=== PATIENT | male | born 1950 | race Caucasian/White ===

== ENCOUNTER 2017-10-08 15:05 | Inpatient (IN) | payer MEDICARE, MEDICAID ==
[~2017-10-08] VITALS: Ht 165.1 cm; Wt 59.9 kg
[~2017-10-08 15:05] MED LIST: /TAMS4CA; CIPRO; FUROSEMIDE 40 MG/4 ML VIAL (J1940) IV SCH; NAPRPOW4; NICO14DI3; VICO5TAB; cipro
[2017-10-08] MEDS ORDERED: BREO1INH INH (15:36)
[2017-10-08] MEDS ORDERED: AMLO5TAB2 PO (15:36)
[2017-10-08 15:38] LABS: BASO # 0.1 10^3/uL (0.0-0.2); BASO % 0.8 % (0.0-1.0); EOS # 0.3 10^3/uL (0.0-0.50); EOS % 1.9 % (0.0-3.0); IMMATURE GRANULOCYTE % 0.5 % (0-0); LYMPH # 2.4 10^3/uL (1.5-4.5); MEAN CORPUSCULAR HGB CONC 29.4 g/dl (32.0-36.5); MONO % 12.3 % (0.0-5.0); NEUTROPHILS # 12.2 10^3/uL (1.8-7.7); NEUTROPHILS % 70.5 % (36.0-66.0); PLATELET COUNT, AUTOMATED 686 10^3/uL (150-450); RED CELL DISTRIBUTION WIDTH 17.2 % (11.5-14.5); WHITE BLOOD COUNT 17.3 10^3/uL (4.0-10.0)
[2017-10-08 15:49] LABS: MONO # 2.1 10^3/uL (0.0-0.8); POSITIVE DIFF POS FLAG
[2017-10-08 16:00] LABS: ANION GAP 7 MEQ/L (8-16); BLOOD UREA NITROGEN 32 MG/DL (7-18); CALCIUM LEVEL 8.9 MG/DL (8.8-10.2); CARBON DIOXIDE LEVEL 31 MEQ/L (21-32); CHLORIDE LEVEL 100 MEQ/L (98-107); CREATININE FOR GFR 1.01 MG/DL (0.70-1.30); GLOMERULAR FILTRATION RATE > 60.0 (>49); GLUCOSE, FASTING 106 MG/DL (80-110); POTASSIUM SERUM 3.8 MEQ/L (3.5-5.1); SODIUM LEVEL 138 MEQ/L (136-145)
[2017-10-08] MEDS ORDERED: METOPROLOL 5 MG/5 ML VIAL IV STA ×2 (16:02→17:04)
[2017-10-08 16:05] LABS: ALBUMIN 2.7 GM/DL (3.2-5.2); ALKALINE PHOSPHATASE 164 U/L (45-117); ALT/SGPT 16 U/L (12-78); AST/SGOT 13 U/L (7-37); BILIRUBIN,DIRECT 0.1 MG/DL (0.0-0.2); BILIRUBIN,TOTAL 0.4 MG/DL (0.2-1.0); THYROXINE (T4) 7.5 UG/DL (4.5-12.0); TOTAL PROTEIN 7.2 GM/DL (6.4-8.2)
--- NOTE | 2017-10-08 16:05 | REP ---
Portable chest x-ray: Two views presented. History: Dyspnea and cough. Comparison chest x-ray: February 23, 2009. Findings: EKG monitoring electrodes overlie the chest. The heart is mildly enlarged. There is chronic tenting of the left hemidiaphragm unchanged from comparison study. Adjacent to this however there are some subtle increased markings suggestive of pneumonia. Remaining lung quiles are clear. Pulmonary vascular markings are slightly increased. No free pleural effusion is observed. Impression: Subtle infiltrate in the left base suggestive of pneumonia. Mildly prominent heart and pulmonary vascular cephalization. Chronic tenting left hemidiaphragm. Signed by Burton Rosas MD 10/08/2017 04:24 P
[2017-10-08 16:07] LABS: ABG BASE EXCESS 4.3 (-2.0-2.0); ABG HCO3 28.7 MEQ/L (22.0-26.0); ABG PARTIAL PRESSURE O2 101.1 mmHg (75.0-100.0); ABG STANDARD HCO3 28.4 MEQ/L (22.0-26.0); ABG pH (ARTERIAL) 7.452 UNITS (7.350-7.450)
[2017-10-08 16:07] LABS: INR 1.01
[2017-10-08] MEDS ORDERED: IPRATROPIUM 0.5MG/ALBUTEROL 2.5MG INH SOL UD 3ML (DUONEB)(J7620) NEB ONE (16:15)
[2017-10-08] MEDS ORDERED: ISOVUE-370 76% 100ML VIAL (Q9967) As Ordered ONE (17:26)
[2017-10-08] MEDS ORDERED: DIGOXIN INJ 0.5 MG/2 ML AMP (J1160) IV STA ×2 (18:49→21:39)
[2017-10-08] MEDS ORDERED: ALBUTEROL SULFATE 2.5 MG/0.5 ML INH NEB SOLN NEB ONE (19:00)
--- NOTE | 2017-10-08 19:22 | REP ---
CT pulmonary angiogram: With IV contrast. History: Shortness of breath. Comparison studies: Comparison is made with today's chest x-ray. There is a comparison chest CT study from [facility] also reviewed dated 01/30/2013. Contrast dose: 75 cc's of Isovue [address] technique: Helical scanning is acquired and overlapping 1.5 mm and contiguous 3 mm axial images are reformatted. In addition, a 3-D work station is deployed to generate thick slab maximum intensity projection images in sagittal and coronal imaging projections. CT pulmonary angiographic findings: There is good opacification of the pulmonary arterial tree. There is no CT evidence of pulmonary embolism. The thoracic aorta enhances homogeneously and is normal in course and caliber. No aneurysm or dissection is seen. There is no evidence of pleural effusion. No hilar or mediastinal mass or adenopathy is seen. There is a small amount of pericardial fluid. There is an abnormal right coronary artery. The right coronary artery is moderately dilated, up to 9 mm in diameter. This dilated right coronary artery is seen descending along the atrioventricular groove of the right heart anteriorly extending in a tortuous fashion at the base of the heart with multiple loops doubling back upon itself. It is difficult to tell where this abnormal right coronary artery drains but the coronary sinus is dilated and partially opacified along the left side of the heart, extending up along the left atrium and I suspect that the lesion is a coronary arteriovenous fistula draining from the right coronary artery into the coronary sinus. Cardiology evaluation possible coronary angiography should be considered. There is no evidence of pleural effusion. There are some chronic pleuroparenchymal fibrosis in the right lung apex unchanged from the 2013 study and emphysematous bullae are seen in the right apex. There are patches of bilateral consolidation in the lung quiles consistent with pneumonia. This most prominently affects the left lower lobe but also the lingula with has patchy areas in the right lower lobe and left upper lobe. No adrenal lesion is seen on either side. The visualized upper abdominal structures are unremarkable except for the presence of a large calculus in the upper pole of the left kidney. This calculus measures 11 mm. Impression: 1. No CT evidence of pulmonary embolism. 2. Patchy infiltrates in the left lower and upper lobe and to a lesser extent right lower lobe consistent with pneumonia. 3. 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 Cardiology evaluation a possible coronary angiography suggested. 4. 11 mm intrarenal calculus upper pole left kidney. Signed by Burton Rosas MD 10/08/2017 07:48 P
[2017-10-08] MEDS ORDERED: CEFTRIAXONE SOD 1 GM in APPROPRIATE DILUENT 1 EA IV ONE (19:30)
[2017-10-08] MEDS ORDERED: AZITHROMYCIN INJ 500 MG, VIAL MATE ADAPTER 1 EACH in D5W 250 ML IV ONE (19:30)
[2017-10-08 19:34] VITALS: O2SAT 94
[2017-10-08] MEDS ORDERED: ALEV220T22 PO (19:55)
[2017-10-08 20:14] LABS: FIBRINOGEN 643 MG/DL (221-452)
[2017-10-08] MEDS ORDERED: ONDANSETRON 4 MG TAB (S0181) PO PRN (21:30)
[2017-10-08] MEDS ORDERED: IPRATROPIUM 0.02% SOLN 0.5MG/2.5 ML NEB INH PRN (21:30)
[2017-10-08] MEDS ORDERED: ALBUTEROL SULFATE 2.5 MG/0.5 ML INH NEB SOLN INH PRN (21:30)
[2017-10-08] MEDS ORDERED: IPRATROPIUM 0.5MG/ALBUTEROL 2.5MG INH SOL UD 3ML (DUONEB)(J7620) NEB PRN (21:30)
[2017-10-08] MEDS ORDERED: BISACODYL 5 MG TAB PO PRN (21:30)
[2017-10-08 21:53] LABS: MAGNESIUM LEVEL 2.2 MG/DL (1.8-2.4)
[2017-10-08 22:28] VITALS: BP 135/66
[2017-10-08 23:00] VITALS: BP 128/74
[2017-10-08 23:25] LABS: FERRITIN 55 NG/ML (26-388); PERCENT SATURATION 3.8 % (19.7-50.0); TOTAL IRON BINDING CAPACITY 312 UG/DL (250-450)
[2017-10-08 23:31] VITALS: BP 120/65
[2017-10-09] VITALS (18 sets, daily range): BP systolic 123–157; BP diastolic 62–86
[2017-10-09 00:36] LABS: MEAN CORPUSCULAR HEMOGLOBIN 19.6 pg (27.0-33.0); MEAN CORPUSCULAR HGB CONC 29.1 g/dl (32.0-36.5); MEAN CORPUSCULAR VOLUME 67.2 fl (80.0-96.0); PLATELET COUNT, AUTOMATED 613 10^3/uL (150-450); RED CELL DISTRIBUTION WIDTH 17.1 % (11.5-14.5); WHITE BLOOD COUNT 15.6 10^3/uL (4.0-10.0)
--- NOTE | 2017-10-09 02:10 | HPEPDOC ---
General Date of Admission 10/08/17 Attending Physician: ZERA GAMBLE MD Chief Complaint 67-year-old male presents to ED for worsening short of breath in past 3 days, and bilateral lower extremity swelling and rash of unknown time. PMH includes only HTN, asthma, and arthritis. Patient states he has been wheezing and has dry cough associated with decreased appetite and nausea. Nasal cannula oxygen in ED improved symptoms, and movement and exertion worsens them. Patient denies similar symptoms in the past, sick contacts, travel history. Denies all other ROS including pain in chest or legs, palpitations, dizziness, lightheadedness, fever, chills. In the ED, patient was noted to be in A. fib with RVR with HR in 140s, systolic blood pressure in 170s, O2 sat~90% which improved with nasal cannula. Patient was noted to have a white count of 17.3, afebrile, BMP in the 5000s, and d- dimer >4000. Chest x-ray revealed left base infiltrate and pulmonary vascular cephalization. CT angiogram was negative for PE and confirmed pneumonia and an incidentally found AV fistula. Patient was administered Lopressor x2 and Iopamidol which normalized blood pressure, and digoxin and diltiazem x2, which converted him to NSR upon transfer to ICU. Cardiology was also called, whose recommendations were followed as seen in A/P of note. CODE STATUS: Pending per patient's request to discuss with clau Byrne who will arrive tomorrow 10/09. Unclear who is healthcare proxy. On initial discussion with patient, he made it clear he does not want to be intubated, but is unsure about CPR, and requesting more time to consider. 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 cholecystectomy Social History CODE STATUS: Pending per patient's request to discuss with clau Caty who will arrive tomorrow 10/09 afternoon heavy smoker; cigarettes 1ppd for 50+ years alcohol: denies illicit drug use: denies Review of Symptoms Constitutional: Denies: Chills, Fever, Night Sweats, Weakness, Weight Loss Eyes: Denies: Pain, Vision change ENT: Denies: Head Aches, Ear Pain, Dysphagia, Epistaxis Pulmonary: Reports: Dyspnea, Cough (dry), Denies: Pleuritic Chest Pain Cardiovascular: Denies: Chest Pain, Edema, Lt Headedness Gastrointestinal: Reports: Nausea, Denies: Vomiting, Abdominal Pain, Diarrhea, Constipation, Melena, Hematochezia Genitourinary: Denies: Hematuria Musculoskeletal: Denies: Joint Pain, Muscle Pain Neurological: Denies: Weakness, Numbness Physical Examination General Exam: Positive: Alert, Cooperative, Mild Distress Eye Exam: Positive: EOMI, Negative: Ptosis ENT Exam: Positive: Atraumatic, Nares Patent, Other ENT (hard of hearing), Negative: Mucous membr. moist/pink (dry) Neck Exam: Positive: Supple Chest Exam: Positive: Rales, Wheezing, Negative: Clear to auscultation Heart Exam: Positive: Tachycardic, Irregular Rhythm, Normal S1, Normal S2, Negative: Rate Normal Telemetry: Positive: Tachycardia Abdomen Exam: Positive: Normal bowel sounds, Soft, Negative: Tenderness Extremity Exam: Negative: Cyanosis, Edema, Tenderness Skin Exam: Positive: Rash (b/l LE, maculopapular, pink, patchy, diffuse from knees below) Neuro Exam: Positive: Normal Tone, Sensation Intact, Negative: Strength at 5/5 X4 ext (5/5 UE b/l, 2/5 LE b/l) Psych Exam: Positive: Mental status NL Vital Signs Vital Signs Date Time Temp Pulse Resp B/P (MAP) Pulse Ox O2 Delivery O2 Flow Rate FiO2 10/08/17 19:40 133 10/08/17 19:34 94 Nasal Cannula 2.0 10/08/17 19:27 113/55 10/08/17 19:03 24 10/08/17 16:33 98.6 Laboratory Data Labs 24H Laboratory Tests 2 10/08/17 15:21: Anion Gap 7L, Glomerular Filtration Rate > 60.0, Lactic Acid Level 2.0, Blood Urea Nitrogen 32H, Creatinine 1.01, Sodium Level 138, Potassium Level 3.8, Chloride Level 100, Carbon Dioxide Level 31, Calcium Level 8.9, Aspartate Amino Transf (AST/SGOT) 13, Alanine Aminotransferase (ALT/SGPT) 16, Alkaline Phosphatase 164H, Total Bilirubin 0.4, Direct Bilirubin 0.1, Total Creatine Kinase 45, Creatine Kinase MB 1.5, Creatine Kinase MB Relative Index 3.33, Troponin I < 0.02, MN-Ypf-G-Type Natriuretic Peptide 5723H, Total Protein 7.2, Albumin 2.7L, Albumin/Globulin Ratio 0.60L, Thyroid Stimulating Hormone (TSH) 1.830, Thyroxine (T4) 7.5 10/08/17 15:27: Immature Granulocyte % (Auto) 0.5H, White Blood Count 17.3H, Red Blood Count 4.31, Hemoglobin 8.6L, Hematocrit 29.3L, Mean Corpuscular Volume 68.0L, Mean Corpuscular Hemoglobin 20.0L, Mean Corpuscular Hemoglobin Concent 29.4L, Red Cell Distribution Width 17.2H, Platelet Count 686H, Neutrophils (%) (Auto) 70.5H , Lymphocytes (%) (Auto) 14.0L, Monocytes (%) (Auto) 12.3H, Eosinophils (%) ( Auto) 1.9, Basophils (%) (Auto) 0.8, Neutrophils # (Auto) 12.2H, Lymphocytes # ( Auto) 2.4, Monocytes # (Auto) 2.1H, Eosinophils # (Auto) 0.3, Basophils # (Auto ) 0.1, Immature Granulocyte # (Auto) 0.1H, Nucleated Red Blood Cells % (auto) 0.0, Prothrombin Time 13.4, Prothromb Time International Ratio 1.01, D-Dimer, Quantitative > 4000.0H 10/08/17 15:55: Blood Gas Bicarbonate Standard 28.4H, Arterial Blood pH 7.452H, Arterial Blood Partial Pressure CO2 42.0, Arterial Blood Partial Pressure O2 101.1H, Arterial Blood Total CO2 30.0, Arterial Blood HCO3 28.7H, Arterial Blood Base Excess 4.3H , Arterial Blood Oxygen Saturation 98.2 CBC/BMP Laboratory Tests 10/08/17 15:21 Calcium Level 8.9 10/08/17 15:27 Red Blood Count 4.31, Mean Corpuscular Volume 68.0 L, Mean Corpuscular Hemoglobin 20.0 L, Mean Corpuscular Hemoglobin Concent 29.4 L, Red Cell Distribution Width 17.2 H, Neutrophils (%) (Auto) 70.5 H, Lymphocytes (%) (Auto ) 14.0 L, Monocytes (%) (Auto) 12.3 H, Eosinophils (%) (Auto) 1.9, Basophils (% ) (Auto) 0.8, Neutrophils # (Auto) 12.2 H, Lymphocytes # (Auto) 2.4, Monocytes # (Auto) 2.1 H, Eosinophils # (Auto) 0.3, Basophils # (Auto) 0.1 Microbiology Microbiology 10/08/17 Blood Culture, Received Pending 10/08/17 Blood Culture, Received Pending Assessment/Plan New onset A. fib with RVR Presented to ED for increased shortness of breath for past 3 days, worse with movement and exertion, improved on oxygen. Found to be in A. fib with heart rate 141 in ED. Converted to NSR with digoxin and diltiazem x2, but continues to waver on tachycardia in low 100s HR. Cardiac markers negative, electrolytes normal. Elevated alkaline phosphatase, BNP, d-dimer, fibrinogen. Discussed case with cardiology: standing dose of digoxin 0.25mg to start in a.m , along with diltiazem 60mg po q6h with holding parameters, and HOLD anticoagulation as patient is anemic Possible CHF No previous history of CHF BNP on admission is 5723 along with elevated fibrinogen and d-dimer >4000. Chest x-ray revealed pulmonary vascular cephalization, CT angiogram negative for PE. No pitting edema or JVD on physical exam. Discussed with production packager, and suggested to hold diuretics for now, as LV function will likely improve with heart rate control; give Lasix in between blood transfusions to avoid volume overload. CXR also revealed an AV fistula leading to dilated coronary sinus. Discussed with cardiology: likely congenital, patient has been asymptomatic for decades. No intervention needed at this time. Iron deficient anemia, 2/2 acute blood loss H&H on admission are 8.6/29.3 respectively. Likely acute blood loss due to patient stating he has had intermittent black tarry stools recently, and supported by anemia workup. GI bleed is very likely, but per ED reports, Hemoccult in ED was negative. Pt denies having ever been transfused. Transfusion consent obtained and in chart. H&H dropped to 8.0/27.5 by the time patient transferred to ICU. Vitals remained stable, but likely to be actively bleeding since patient was not on fluids. 2 units PRBCs transfused stat, with Lasix 40mg given after 1st unit. Per production packager, goal is hemoglobin>10 to prevent cardiac ischemia. Trend H&H more transfusions may be needed. On Protonix po Community-acquired pneumonia WBC 17.3 on admission and elevated Alk phos. Patient afebrile. CXR revealed pneumonia, and patient has symptoms dry cough and wheezing. CT angiogram negative for PE. Start Ceftaroline and azithromycin Continue oxygen support and nebulizers Cellulitis of bilateral lower extremity Nonpainful swelling of bilateral lower extremity from knees downward and nonblanching diffuse maculopapular rash bilaterally in same area. Likely contributing to leukocytosis. Ceftaroline and azithromycin started Blood cultures pending Hypertension BP on admission was 171/77 with patient asymptomatic. Normalized in ED with Lopressor x2, Iopamidol. 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 Tylenol prn Asthma nebulizers prn DVT prophylaxis SCD/TEDs. Hold anticoagulation since patient is anemic DISPOSITION: Will admit to ICU and transition to Dr. Gamble's service in the morning. Poor prognosis. Plan / VTE VTE Prophylaxis Ordered?: Yes (SCD/EDDIE) GME ATTESTATION ATTENDING NOTE I have seen and examined the patient with the resident I have reviewed the and discussed the plan with her I concur with her findings on Hx and PE and agree with her A&P with the following additions/exceptions: Patient with Anemia and CAP requiring IV ABx so A 2 MN stay is expected. WILLIAM LYNCH DO Oct 08, 2017 20:27 JENNIFER NORMAN MD Oct 11, 2017 06:14
[2017-10-09 07:38] LABS: MEAN CORPUSCULAR HEMOGLOBIN 21.7 pg (27.0-33.0); MEAN CORPUSCULAR HGB CONC 30.5 g/dl (32.0-36.5); MEAN CORPUSCULAR VOLUME 71.3 fl (80.0-96.0); PLATELET COUNT, AUTOMATED 650 10^3/uL (150-450); RED CELL DISTRIBUTION WIDTH 20.4 % (11.5-14.5)
[2017-10-09 08:03] LABS: ANION GAP 6 MEQ/L (8-16); BLOOD UREA NITROGEN 25 MG/DL (7-18); CALCIUM LEVEL 8.6 MG/DL (8.8-10.2); CARBON DIOXIDE LEVEL 33 MEQ/L (21-32); CHLORIDE LEVEL 99 MEQ/L (98-107); CREATININE FOR GFR 1.08 MG/DL (0.70-1.30); GLOMERULAR FILTRATION RATE > 60.0 (>49); GLUCOSE, FASTING 103 MG/DL (80-110); POTASSIUM SERUM 4.2 MEQ/L (3.5-5.1); SODIUM LEVEL 138 MEQ/L (136-145)
--- NOTE | 2017-10-09 09:27 | ECGEPIP ---
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
[2017-10-09] MEDS: PANTOPRAZOLE 40MG TAB (PROTONIX) PO SCH (09:30)
[2017-10-09] MEDS: DIGOXIN 0.25 MG TAB PO SCH (09:31)
[2017-10-09] MEDS: amLODIPine 5 MG TAB PO SCH (09:33)
[2017-10-09] MEDS: CEFTAROLINE FOSAMIL 600 MG in APPROPRIATE DILUENT 1 EA IV SCH ×2 (10:04→22:52)
--- NOTE | 2017-10-09 16:53 | IPNPDOC ---
Text Note Date of Service The patient was seen on 10/09/17. NOTE Subjective: Patient is a 67 year old male with a PMHx of HTN, Asthma and Arthritis who presented to the ER with complaints of SOB and productive cough. He was found to be in A. fib with RVR. Labs revealed he was profoundly anemic requiring transfusions and also had a left sided pneumonia. Case was discussed with cardiology and rate / rhythm control medications were recommended. Patient received Digoxin IV in the ER. Patient was admitted to ICU by the hospitalist service over night. He was continued with Digoxin and Diltazem PO for his atrial fibrillation. He was transfused 2 units PRBC and started on Ceftaroline and Azithromycin for PNA / Cellulitis of LE. Patient was seen and examined at the bedside. Patient denied any chest pain, palpitations. He noted improvement in his shortness of breath. Did report that he's been having a productive cough. Denied any nausea, vomiting, abdominal pain , constipation, diarrhea or dysuria Objective: Vitals (See below) General: Lying in bed, no acute distress, comfortable, AAOx3 HEENT: NC, AT CVS: Tachycardic, Irregular, +S1S2 Lungs: Decreased lung sounds on left Abdomen: Soft, ND, NT Extremities: - Edema, - Calf tenderness Assessment and plan: Dyspnea - likely 2/2 new onset atrial fibrillation with RVR, possibly 2/2 community acquired pneumonia, possibly 2/2 anemia [New onset atrial fibrillation with RVR] - Found to have a heart rate in the 140s in ER; converted to NSR, s/p Digoxin IV, Diltiazem IV 2 - ECHO pending - c/w digoxin 0.25 mg daily, diltiazem 60 mg by mouth every 6 hours - We will hold anticoagulation given anemia [Community acquired pneumonia] - Centimeters the ER with difficulty breathing and productive cough - No febrile episodes were noted in the emergency room; decreased lung sounds on the left were noted - CT Chest 10/08: No evidence of PE, patchy infiltrates and LLL and LORENA, possibly RLL - consistent with PNA - f/u Blood cultures and Sputum cultures - c/w Ceftaroline and Azithromycin (Day #2) [Microcytic anemia] - likely 2/2 iron deficiency; possibly with component of acute blood loss anemia - Hg from 2009 baseline of 11 - Hg on admission of 8.6; s/p infusion with 2 units PRBC - Hg appropriately terrence to 10.3 post-transfusion - Iron panel consistent with iron deficiency anemia - Stool for occult blood pending - Will continue to monitor; will repeat CBC around 6PM - Will require iron supplementation upon discharge 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 - Denies chest pain or palpitations - First set cardiac enzymes have been negative Cellulitis of bilateral LE - Presented with redness, swelling and mild tenderness of bilateral lower extremities - Physical consistent with cellulitic skin changes - See above HTN - Blood pressure well controlled - c/w Cardizem, amlodipine Thrombocytosis - likely 2/2 iron deficiency anemia, possibly 2/2 reactive etiology - s/p splenectomy (re: traumatic event) - Will continue to monitor Arthritis - c/w Tylenol Asthma - c/w DuoNeb scheduled and PRN DVT prophylaxis - c/w sleeve compression devices VS,Fishbone, I+O VS, Fishbone, I+O Laboratory Tests 10/09/17 00:10 Red Blood Count 4.09 L, Mean Corpuscular Volume 67.2 L, Mean Corpuscular Hemoglobin 19.6 L, Mean Corpuscular Hemoglobin Concent 29.1 L, Red Cell Distribution Width 17.1 H 10/09/17 07:16 Red Blood Count 4.74, Mean Corpuscular Volume 71.3 L, Mean Corpuscular Hemoglobin 21.7 L, Mean Corpuscular Hemoglobin Concent 30.5 L, Red Cell Distribution Width 20.4 H, Calcium Level 8.6 L Vital Signs Date Time Temp Pulse Resp B/P (MAP) Pulse Ox O2 Delivery O2 Flow Rate FiO2 10/09/17 14:45 99 137/70 10/09/17 12:00 Nasal Cannula 2.0 10/09/17 12:00 98.6 22 94 I&O- Last 24 Hours up to 6 AM 10/10/17 06:00 Intake Total 1080 ml Output Total 1425 ml Balance -345 ml EZRA MORRIS MD Oct 09, 2017 16:53
[2017-10-09] MEDS: ACETAMINOPHEN TAB 650MG DOSE (2X325MG) PO PRN ×2 (17:08→21:32)
[2017-10-09 17:20] LABS: BASO # 0.2 10^3/uL (0.0-0.2); BASO % 0.9 % (0.0-1.0); EOS # 0.4 10^3/uL (0.0-0.50); EOS % 2.6 % (0.0-3.0); LYMPH # 2.5 10^3/uL (1.5-4.5); LYMPH % 14.7 % (24.0-44.0); MEAN CORPUSCULAR HEMOGLOBIN 21.3 pg (27.0-33.0); MEAN CORPUSCULAR HGB CONC 30.3 g/dl (32.0-36.5); MEAN CORPUSCULAR VOLUME 70.4 fl (80.0-96.0); MONO # 1.7 10^3/uL (0.0-0.8); NEUTROPHILS # 11.9 10^3/uL (1.8-7.7); NEUTROPHILS % 70.8 % (36.0-66.0); PLATELET COUNT, AUTOMATED 658 10^3/uL (150-450); RED CELL DISTRIBUTION WIDTH 20.7 % (11.5-14.5); WHITE BLOOD COUNT 16.8 10^3/uL (4.0-10.0)
[2017-10-09 19:52] LABS: ALBUMIN 2.5 GM/DL (3.2-5.2); ALBUMIN/GLOBULIN RATIO 0.48 (1.00-1.93); ALKALINE PHOSPHATASE 155 U/L (45-117); ALT/SGPT 13 U/L (12-78); AST/SGOT 16 U/L (7-37); BILIRUBIN,TOTAL 0.4 MG/DL (0.2-1.0); MAGNESIUM LEVEL 2.3 MG/DL (1.8-2.4); PHOSPHORUS LEVEL 4.1 MG/DL (2.5-4.9); TOTAL PROTEIN 7.7 GM/DL (6.4-8.2)
[2017-10-09] MEDS: AZITHROMYCIN INJ 500 MG, VIAL MATE ADAPTER 1 EACH in D5W 250 ML IV SCH (21:27)
[2017-10-10] VITALS (7 sets, daily range): BP systolic 113–152; BP diastolic 58–104
[2017-10-10] MEDS: ACETAMINOPHEN TAB 650MG DOSE (2X325MG) PO PRN ×2 (04:13→10:48)
[2017-10-10 05:07] LABS: MEAN CORPUSCULAR HEMOGLOBIN 21.6 pg (27.0-33.0); MEAN CORPUSCULAR HGB CONC 30.4 g/dl (32.0-36.5); MEAN CORPUSCULAR VOLUME 71.1 fl (80.0-96.0); PLATELET COUNT, AUTOMATED 716 10^3/uL (150-450); RED CELL DISTRIBUTION WIDTH 20.8 % (11.5-14.5); WHITE BLOOD COUNT 15.2 10^3/uL (4.0-10.0)
[2017-10-10 05:29] LABS: ANION GAP 6 MEQ/L (8-16); BLOOD UREA NITROGEN 27 MG/DL (7-18); CALCIUM LEVEL 8.9 MG/DL (8.8-10.2); CARBON DIOXIDE LEVEL 30 MEQ/L (21-32); CHLORIDE LEVEL 99 MEQ/L (98-107); CREATININE FOR GFR 0.91 MG/DL (0.70-1.30); GLOMERULAR FILTRATION RATE > 60.0 (>49); GLUCOSE, FASTING 91 MG/DL (80-110); POTASSIUM SERUM 3.8 MEQ/L (3.5-5.1); SODIUM LEVEL 135 MEQ/L (136-145)
[2017-10-10] MEDS: CEFTAROLINE FOSAMIL 600 MG in APPROPRIATE DILUENT 1 EA IV SCH ×2 (08:50→21:29)
[2017-10-10] MEDS: amLODIPine 5 MG TAB PO SCH (08:51)
[2017-10-10] MEDS: PANTOPRAZOLE 40MG TAB (PROTONIX) PO SCH (08:51)
[2017-10-10] MEDS: DIGOXIN 0.25 MG TAB PO SCH (08:51)
--- NOTE | 2017-10-10 14:29 | IPNPDOC ---
Text Note Date of Service The patient was seen on 10/10/17. NOTE Subjective: Patient is a 67 year old male with a PMHx of HTN, Asthma and Arthritis who presented to the ER with complaints of SOB and productive cough. He was found to be in A. fib with RVR. Labs revealed he was profoundly anemic requiring transfusions and also had a left sided pneumonia. Case was discussed with cardiology and rate / rhythm control medications were recommended. Patient received Digoxin IV in the ER. Patient was admitted to ICU by the hospitalist service over night. He was continued with Digoxin and Diltazem PO for his atrial fibrillation. He was transfused 2 units PRBC and started on Ceftaroline and Azithromycin for PNA / Cellulitis of LE. Patient was seen and examined at the bedside. Patient currently notes that he's been having still a productive cough, but he denies any difficulty breathing or chest pain at this moment. Denies any abdominal pain, constipation, diarrhea or dysuria. Objective: Vitals (See below) General: Lying in bed, no acute distress, comfortable, AAOx3 HEENT: NC, AT CVS: Tachycardic, Irregular, +S1S2 Lungs: Decreased lung sounds on left Abdomen: Soft, ND, NT Extremities: - Edema, - Calf tenderness Assessment and plan: Dyspnea - likely multifactorial 2/2 New onset atrial fibrillation with RVR, possibly 2/2 Community acquired pneumonia, possibly 2/2 Anemia [New onset atrial fibrillation with RVR] - Found to have a heart rate in the 140s in ER; converted to NSR, s/p Digoxin IV, Diltiazem IV 2 - ECHO complete, however, report remains pending - TSH and free T4 are noted and within normal limits - c/w digoxin 0.25 mg daily, diltiazem 60 mg by mouth every 6 hours - Will continue to hold anticoagulation at this time given his need for transfusions [Community acquired pneumonia] - Presented to the ER with difficulty breathing and productive cough - Physical this morning does not reveal any adventitious lung sounds, remains afebrile - CT Chest 10/08: No evidence of PE, patchy infiltrates and LLL and LORENA, possibly RLL - consistent with PNA - f/u Blood cultures negative at 24 hours and Sputum cultures remain pending - c/w Ceftaroline and Azithromycin (Day #3) [Microcytic anemia] - likely 2/2 iron deficiency; possibly with component of acute blood loss anemia - Hg from 2008 baseline of 11 - Hg on admission of 8.6; s/p infusion with 2 units PRBC - Hg appropriately terrence to 10.3 post-transfusion - Iron panel consistent with iron deficiency anemia - Stool for occult blood - still pending - Hemoglobin appears to be stable - Will start iron supplementation 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 - Denies chest pain or palpitations - Cardiac enzymes have been negative Cellulitis of bilateral LE - Presented with redness, swelling and mild tenderness of bilateral lower extremities - No significant erythema has been noted - See above for antibiotic course HTN - Blood pressure well controlled - c/w Cardizem, Amlodipine Thrombocytosis - likely 2/2 iron deficiency anemia, possibly 2/2 reactive etiology - s/p Splenectomy (re: traumatic event) - Will continue to monitor Arthritis - c/w Tylenol Asthma - c/w DuoNeb scheduled and PRN DVT prophylaxis - c/w sleeve compression devices Disposition: - Will downgrade to the progressive care unit VS,Jesus, I+O VS, Jesus, I+O Laboratory Tests 10/09/17 17:11 Red Blood Count 5.06, Mean Corpuscular Volume 70.4 L, Mean Corpuscular Hemoglobin 21.3 L, Mean Corpuscular Hemoglobin Concent 30.3 L, Red Cell Distribution Width 20.7 H, Neutrophils (%) (Auto) 70.8 H, Lymphocytes (%) (Auto ) 14.7 L, Monocytes (%) (Auto) 10.0 H, Eosinophils (%) (Auto) 2.6, Basophils (% ) (Auto) 0.9, Neutrophils # (Auto) 11.9 H, Lymphocytes # (Auto) 2.5, Monocytes # (Auto) 1.7 H, Eosinophils # (Auto) 0.4, Basophils # (Auto) 0.2 10/10/17 04:46 Red Blood Count 5.05, Mean Corpuscular Volume 71.1 L, Mean Corpuscular Hemoglobin 21.6 L, Mean Corpuscular Hemoglobin Concent 30.4 L, Red Cell Distribution Width 20.8 H, Calcium Level 8.9 Vital Signs Date Time Temp Pulse Resp B/P (MAP) Pulse Ox O2 Delivery O2 Flow Rate FiO2 10/10/17 08:51 95 10/10/17 08:04 Nasal Cannula 2.0 10/10/17 07:55 97.2 20 131/60 (99) 48 ERZA MORRIS MD Oct 10, 2017 14:29
[2017-10-10] MEDS: FERROUS SULFATE 325MG TAB PO SCH ×2 (16:16→20:07)
[2017-10-10] MEDS: AZITHROMYCIN INJ 500 MG, VIAL MATE ADAPTER 1 EACH in D5W 250 ML IV SCH (20:07)
[2017-10-11] VITALS (7 sets, daily range): BP systolic 113–137; BP diastolic 56–70
[2017-10-11 05:25] LABS: MEAN CORPUSCULAR HGB CONC 30.1 g/dl (32.0-36.5); MEAN CORPUSCULAR VOLUME 69.7 fl (80.0-96.0); PLATELET COUNT, AUTOMATED 722 10^3/uL (150-450); RED CELL DISTRIBUTION WIDTH 21.3 % (11.5-14.5); WHITE BLOOD COUNT 11.5 10^3/uL (4.0-10.0)
[2017-10-11 05:37] LABS: ANION GAP 8 MEQ/L (8-16); BLOOD UREA NITROGEN 33 MG/DL (7-18); CALCIUM LEVEL 8.2 MG/DL (8.8-10.2); CARBON DIOXIDE LEVEL 27 MEQ/L (21-32); CHLORIDE LEVEL 103 MEQ/L (98-107); CREATININE FOR GFR 1.02 MG/DL (0.70-1.30); GLOMERULAR FILTRATION RATE > 60.0 (>49); GLUCOSE, FASTING 98 MG/DL (80-110); POTASSIUM SERUM 4.2 MEQ/L (3.5-5.1); SODIUM LEVEL 138 MEQ/L (136-145)
[2017-10-11] MEDS: FERROUS SULFATE 325MG TAB PO SCH ×3 (09:15→20:12)
[2017-10-11] MEDS: PANTOPRAZOLE 40MG TAB (PROTONIX) PO SCH (09:16)
[2017-10-11] MEDS: CEFTAROLINE FOSAMIL 600 MG in APPROPRIATE DILUENT 1 EA IV SCH ×2 (09:17→20:12)
[2017-10-11] MEDS: DIGOXIN 0.25 MG TAB PO SCH (09:22)
[2017-10-11] MEDS: amLODIPine 5 MG TAB PO SCH (09:23)
--- NOTE | 2017-10-11 11:01 | IPNPDOC ---
Text Note Date of Service The patient was seen on 10/11/17. NOTE Subjective: Patient is a 67 year old male with a PMHx of HTN, Asthma and Arthritis who presented to the ER with complaints of SOB and productive cough. He was found to be in A. fib with RVR. Labs revealed he was profoundly anemic requiring transfusions and also had a left sided pneumonia. Case was discussed with cardiology and rate / rhythm control medications were recommended. Patient received Digoxin IV in the ER. Patient was admitted to ICU by the hospitalist service over night. He was continued with Digoxin and Diltazem PO for his atrial fibrillation. He was transfused 2 units PRBC and started on Ceftaroline and Azithromycin for PNA / Cellulitis of LE. Patient was seen and examined at the bedside. Patient notes improvement in his difficulty breathing and productive cough. Denies any fevers, abdominal pain, constipation, diarrhea or dysuria. Objective: Vitals (See below) General: Lying in bed, no acute distress, comfortable, AAOx3 HEENT: NC, AT CVS: Tachycardic, Irregular, +S1S2 Lungs: Fair air entry bilaterally; no appreciable wheezing Abdomen: Soft, ND, NT Extremities: - Edema, - Calf tenderness Assessment and plan: Dyspnea - likely multifactorial 2/2 New onset atrial fibrillation with RVR, possibly 2/2 Community acquired pneumonia, possibly 2/2 Anemia [New onset atrial fibrillation with RVR] - Found to have a heart rate in the 140s in ER; converted to NSR, s/p Digoxin IV, Diltiazem IV 2 - ECHO complete, however, report still remains pending - TSH and free T4 are noted and within normal limits - c/w digoxin 0.25 mg daily, diltiazem 60 mg by mouth every 6 hours - We will discuss with cardiology about starting anticoagulation; was held initially because of anemia [Community acquired pneumonia] - Presented to the ER with difficulty breathing and productive cough - No evidence of rhonchi, remains afebrile - CT Chest 10/08: No evidence of PE, patchy infiltrates and LLL and LORENA, possibly RLL - consistent with PNA - f/u Blood cultures negative at 48 hours and Sputum cultures 10/08: No growth - c/w Ceftaroline and Azithromycin (Day #4) [Microcytic anemia] - likely 2/2 iron deficiency; possibly with component of acute blood loss anemia - Hg from 2009 baseline of 11 - Hg on admission of 8.6; s/p 2 units PRBC; appropriate rise - Hg remains stable - Iron panel consistent with iron deficiency anemia - Stool for occult blood - still pending; will repeat today - c/w ferrous sulfate TID 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 - Denies chest pain or palpitations - Cardiac enzymes have been negative Cellulitis of bilateral LE - Presented with redness, mild tenderness of bilateral lower extremities - Skin changes and care to be chronic in nature - See above for antibiotic course HTN - Blood pressure well controlled - c/w Cardizem, Amlodipine Thrombocytosis - likely 2/2 iron deficiency anemia, possibly 2/2 reactive etiology - s/p Splenectomy (re: traumatic event) - continue to monitor Arthritis - c/w Tylenol Asthma - c/w DuoNeb scheduled and PRN DVT prophylaxis - c/w sleeve compression devices Disposition: -Awaiting resolution of leukocytosis, thrombocytosis -Will need to start anticoagulation if stool occult is negative VS,Fishbone, I+O VS, Fishbone, I+O Laboratory Tests 10/11/17 05:09 Red Blood Count 5.15, Mean Corpuscular Volume 69.7 L, Mean Corpuscular Hemoglobin 21.0 L, Mean Corpuscular Hemoglobin Concent 30.1 L, Red Cell Distribution Width 21.3 H, Calcium Level 8.2 L Vital Signs Date Time Temp Pulse Resp B/P (MAP) Pulse Ox O2 Delivery O2 Flow Rate FiO2 10/11/17 09:23 95 130/63 10/11/17 08:00 97.6 18 96 Room Air 10/10/17 16:09 2.0 I&O- Last 24 Hours up to 6 AM 10/12/17 06:00 Output Total 200 ml Balance -200 ml EZRA MORRIS MD Oct 11, 2017 11:01
[2017-10-11] MEDS: AZITHROMYCIN 250 MG TAB PO SCH (20:12)
[2017-10-12] VITALS (7 sets, daily range): BP systolic 122–144; BP diastolic 61–93
[2017-10-12 05:49] LABS: MEAN CORPUSCULAR HGB CONC 29.9 g/dl (32.0-36.5); MEAN CORPUSCULAR VOLUME 70.3 fl (80.0-96.0); PLATELET COUNT, AUTOMATED 718 10^3/uL (150-450); RED CELL DISTRIBUTION WIDTH 21.6 % (11.5-14.5); WHITE BLOOD COUNT 12.4 10^3/uL (4.0-10.0)
[2017-10-12 06:10] LABS: ANION GAP 8 MEQ/L (8-16); BLOOD UREA NITROGEN 33 MG/DL (7-18); CALCIUM LEVEL 8.4 MG/DL (8.8-10.2); CARBON DIOXIDE LEVEL 25 MEQ/L (21-32); CHLORIDE LEVEL 106 MEQ/L (98-107); GLOMERULAR FILTRATION RATE > 60.0 (>49); GLUCOSE, FASTING 89 MG/DL (80-110); POTASSIUM SERUM 4.4 MEQ/L (3.5-5.1); SODIUM LEVEL 139 MEQ/L (136-145)
[2017-10-12] MEDS: PANTOPRAZOLE 40MG TAB (PROTONIX) PO SCH (08:55)
[2017-10-12] MEDS: FERROUS SULFATE 325MG TAB PO SCH ×3 (08:56→20:26)
[2017-10-12] MEDS: amLODIPine 5 MG TAB PO SCH (08:56)
[2017-10-12] MEDS: DIGOXIN 0.25 MG TAB PO SCH (08:57)
[2017-10-12] MEDS: CEFTAROLINE FOSAMIL 600 MG in APPROPRIATE DILUENT 1 EA IV SCH (08:58)
--- NOTE | 2017-10-12 11:27 | IPNPDOC ---
Text Note Date of Service The patient was seen on 10/12/17. NOTE Subjective: Patient is a 67 year old male with a PMHx of HTN, Asthma and Arthritis who presented to the ER with complaints of SOB and productive cough. He was found to be in A. fib with RVR. Labs revealed he was profoundly anemic requiring transfusions and also had a left sided pneumonia. Case was discussed with cardiology and rate / rhythm control medications were recommended. Patient received Digoxin IV in the ER. Patient was admitted to ICU by the hospitalist service over night. He was continued with Digoxin and Diltazem PO for his atrial fibrillation. He was transfused 2 units PRBC and started on Ceftaroline and Azithromycin for PNA / Cellulitis of LE. Patient was seen and examined at the bedside. Patient does not report any issues overnight. Reports that his breathing is doing better, his cough has improved. Denies any chest pain. Objective: Vitals (See below) General: Lying in bed, no acute distress, comfortable, AAOx3 HEENT: NC, AT CVS: Tachycardic, Irregular, +S1S2 Lungs: Fair air entry bilaterally; no appreciable wheezing Abdomen: Soft, ND, NT Extremities: - Edema, - Calf tenderness Assessment and plan: Dyspnea - likely multifactorial 2/2 New onset atrial fibrillation with RVR, possibly 2/2 Community acquired pneumonia, possibly 2/2 Anemia [New onset atrial fibrillation with RVR] - HR of 140s in ER; converted to NSR after Digoxin IV and Diltiazem IV 2 - ECHO complete - report still pending - TSH and free T4 are noted and within normal limits - Stool for occult blood negative - c/w digoxin 0.25 mg daily, diltiazem 60 mg by mouth every 6 hours - Will tar heat exchanger cleaner Diltiazem to ER and start Eliquis BID [Community acquired pneumonia] - Clinical improvement in dyspnea and productive cough - No evidence of rhonchi, remains afebrile - CT Chest 10/08: No evidence of PE, patchy infiltrates and LLL and LORENA, possibly RLL - consistent with PNA - f/u Blood cultures negative at 72 hours and Sputum cultures 10/08: No growth - Will start Cefdinir / Azithromycin PO; Will stop Ceftaroline and Azithromycin IV (Day #5 of antibiotics) [Microcytic anemia] - likely 2/2 iron deficiency; possibly with component of acute blood loss anemia - Hg from 2009 baseline of 11 - Hg on admission of 8.6; s/p 2 units PRBC; appropriate rise - Hg remains stable; Occult blood stool - negative - Iron panel consistent with iron deficiency anemia - c/w ferrous sulfate TID 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 - Denies chest pain or palpitations - Cardiac enzymes have been negative Cellulitis of bilateral LE - Presented with redness, mild tenderness of bilateral lower extremities - Skin changes appear to be chronic in nature - See above for antibiotic course; will switch to oral form today HTN - Blood pressure well controlled - c/w Cardizem, Amlodipine Thrombocytosis - likely 2/2 iron deficiency anemia, possibly 2/2 reactive etiology - s/p Splenectomy (re: traumatic event) - continue to monitor Arthritis - c/w Tylenol Asthma - c/w DuoNeb scheduled and PRN DVT prophylaxis - c/w sleeve compression devices Disposition: - Will start oral antibiotics - Will change to long acting Cardizem - Will start anticoagulation - Awaiting PT evaluation / clearance VS,[place]bone, I+O VS, Fishbone, I+O Laboratory Tests 10/12/17 05:19 Red Blood Count 5.09, Mean Corpuscular Volume 70.3 L, Mean Corpuscular Hemoglobin 21.0 L, Mean Corpuscular Hemoglobin Concent 29.9 L, Red Cell Distribution Width 21.6 H, Calcium Level 8.4 L Vital Signs Date Time Temp Pulse Resp B/P (MAP) Pulse Ox O2 Delivery O2 Flow Rate FiO2 10/12/17 08:57 87 10/12/17 08:56 122/61 10/12/17 08:00 Room Air 10/12/17 08:00 97.0 22 92 10/10/17 16:09 2.0 I&O- Last 24 Hours up to 6 AM 10/13/17 06:00 Intake Total 650 ml Balance 650 ml EZRA MORRIS MD Oct 12, 2017 11:27
[2017-10-12] MEDS: APIXABAN 5 MG TAB (ELIQUIS) PO SCH ×2 (12:21→20:26)
[2017-10-12] MEDS: CEFDINIR 300 MG CAP (OMNICEF) PO SCH ×2 (12:22→20:26)
[2017-10-12] MEDS: AZITHROMYCIN 250 MG TAB PO SCH (20:25)
[2017-10-12] MEDS: ACETAMINOPHEN TAB 650MG DOSE (2X325MG) PO PRN (20:27)
[2017-10-13 04:00] VITALS: BP 128/67
[2017-10-13 05:53] LABS: MEAN CORPUSCULAR HEMOGLOBIN 21.4 pg (27.0-33.0); MEAN CORPUSCULAR HGB CONC 30.3 g/dl (32.0-36.5); MEAN CORPUSCULAR VOLUME 70.7 fl (80.0-96.0); PLATELET COUNT, AUTOMATED 680 10^3/uL (150-450); RED CELL DISTRIBUTION WIDTH 21.7 % (11.5-14.5); WHITE BLOOD COUNT 10.8 10^3/uL (4.0-10.0)
[2017-10-13 06:06] LABS: ANION GAP 7 MEQ/L (8-16); BLOOD UREA NITROGEN 33 MG/DL (7-18); CALCIUM LEVEL 8.4 MG/DL (8.8-10.2); CARBON DIOXIDE LEVEL 26 MEQ/L (21-32); CHLORIDE LEVEL 106 MEQ/L (98-107); CREATININE FOR GFR 0.89 MG/DL (0.70-1.30); GLOMERULAR FILTRATION RATE > 60.0 (>49); GLUCOSE, FASTING 90 MG/DL (80-110); POTASSIUM SERUM 4.1 MEQ/L (3.5-5.1); SODIUM LEVEL 139 MEQ/L (136-145)
[2017-10-13 08:09] VITALS: BP 128/67
[2017-10-13] MEDS: PANTOPRAZOLE 40MG TAB (PROTONIX) PO SCH (08:09)
[2017-10-13] MEDS: APIXABAN 5 MG TAB (ELIQUIS) PO SCH (08:09)
[2017-10-13] MEDS: amLODIPine 5 MG TAB PO SCH (08:09)
[2017-10-13] MEDS: CEFDINIR 300 MG CAP (OMNICEF) PO SCH (08:09)
[2017-10-13] MEDS: FERROUS SULFATE 325MG TAB PO SCH (08:09)
[2017-10-13] MEDS: DIGOXIN 0.25 MG TAB PO SCH (08:09)
[2017-10-13 08:12] VITALS: BP 118/62
[2017-10-13] MEDS ORDERED: DILT120C PO (10:38)
[2017-10-13] MEDS ORDERED: DIGO0.25 PO (10:38)
[2017-10-13] MEDS ORDERED: AZIT-12 PO (10:38)
[2017-10-13] MEDS ORDERED: ELIQ5TAB PO (10:38)
[2017-10-13] MEDS ORDERED: FERR1TAB8 PO (10:38)
[2017-10-13] MEDS ORDERED: CEFD300CAP PO (10:38)
--- NOTE | 2017-10-13 13:51 | ECHO ---
DATE OF PROCEDURE: 10/09/2017 AGE: 67 GENDER: Male HEIGHT: 65 inches WEIGHT: 136 pounds BODY SURFACE AREA: 1.68 meters squared INPATIENT: ICU, 3201 REFERRING PHYSICIAN: Dr. Lauren Irving INDICATION: Dyspnea. MEASUREMENTS: 2D MEASUREMENTS: RV - 4.4 cm. LV - 5.8 cm. Septum 1.1 cm. Posterior wall 1.1 cm. Aortic root 3.6 cm. LVEF - 75%. DOPPLER MEASUREMENTS: AV - 1.7 m/s LVOT - 1.3 m/s LVOT diameter 2.4 cm. MV-E 87, A - 81, E/A ratio 1.1. Early mitral deceleration time 225 ms. E prime 5.8, A prime 12, E/E prime ratio 15.1. PV - 0.95 m/s. Pulmonary artery acceleration time 113 ms. RVSP 50 mmHg. IVC - 2.2 cm. COMMENTS: Normal sinus rhythm without intraventricular conduction disturbance. Mildly dilated left atrium and left ventricle. Right heart chambers were also mildly dilated. LV wall thickness upper limits of normal. On real-time imaging from the parasternal and apical projections, wall motion was symmetrical and hyperkinetic. Normal appearing mitral valvular apparatus and leaflet excursion with no posterior systolic buckling. Three equal size aortic cusps of normal thickness and cusp separation. Normal aortic root size. No apparent intracardiac mass. Minuscule posterior pericardial effusion. Color flow Doppler study taken from the parasternal and apical projections showed trace of mitral, no aortic and moderate tricuspid insufficiency. Guided continuous wave Doppler of his aortic valve showed a normal peak systolic velocity against LV outflow tract obstruction. Pulsed and continuous wave Doppler of his LV inflow tract taken from the apical four-chamber projection showed normal diastolic filling velocities against mitral stenosis. There was a "pseudonormal" filling pattern with prolonged early mitral deceleration time and tissue Doppler of his mitral annulus showing LV diastolic dysfunction with elevated estimated mean left atrial pressure of 18.6 mmHg. Guided pulsed and continuous wave Doppler of his pulmonary trunk showed a normal peak systolic velocity against RV outflow tract obstruction. His pulmonary artery acceleration time was lower limits of normal suggesting at least a mildly elevated pulmonary vascular resistance. Guided continuous wave Doppler of his tricuspid valve allowed our estimation of his right ventricular systolic pressure (at least moderately increased). His inferior vena cava was mildly dilated, but currently collapsed fairly normally with inspiration against a significantly elevated central venous pressure at this time. CONCLUSIONS: Mildly dilated but hyperkinetic left ventricle. Mild to moderately dilated left atrium with Doppler evidence of an impairment of LV diastolic function and mildly elevated estimated mean left atrial pressure. Mildly dilated right heart chambers with Doppler evidence of moderate pulmonary hypertension. Mildly dilated IVC with normal respiratory collapse against an elevated central venous pressure at this time.
--- NOTE | 2017-10-13 22:00 | DSES ---
DATE OF ADMISSION: 10/08/2017 DATE OF DISCHARGE: 10/13/2017 PRIMARY CARE PROVIDER: Bailey Lawton NP in [place]. REFERRING PHYSICIAN: None. CONSULTING PHYSICIANS: None. CONDITION ON DISCHARGE: Stable. FINAL DIAGNOSIS: Dyspnea, likely multifactorial secondary to new-onset atrial fibrillation, community-acquired pneumonia, and anemia. PROCEDURES: None. HISTORY OF PRESENT ILLNESS: The patient is a 67-year-old male with past medical history of hypertension, asthma, and arthritis, who presented to the emergency room (ER) with complaints of shortness of breath and productive cough. He was found to be in atrial fibrillation with rapid ventricular rate (RVR). Labs revealed he was profoundly anemic requiring transfusions, and also had a left-sided pneumonia. Case was discussed with cardiology and rate and rhythm-control medications were instituted. The patient received digoxin intravenous (IV) and diltiazem IV in the emergency room. The patient was admitted to the intensive care unit (ICU) by the hospitalist service overnight. He was continued with digoxin and diltiazem by mouth for the atrial fibrillation. He was transfused two units of packed red blood cells (PRBCs) and started on ceftaroline and azithromycin for pneumonia/cellulitis of the lower extremities. HOSPITAL COURSE: 1. Dyspnea, likely secondary to multifactorial etiology secondary to new-onset atrial fibrillation with RVR, possible community-acquired pneumonia, possible anemia. A. New-onset atrial fibrillation with RVR: Heart rate of 140s in the emergency room converted to normal sinus rhythm after digoxin IV and diltiazem IV were given. Echocardiogram was completed. Thyroid function was noted. Stool for occult blood was negative. The patient was continued with digoxin 0.25 mg daily, as well as diltiazem 60 mg every six hours. His diltiazem was changed to extended-release, and upon discharge, the patient was sent home with digoxin and extended-release diltiazem, as well as Eliquis twice a day. B. Community-acquired pneumonia: Clinically improved throughout the hospital course. He has noted improvement in his productive cough. There is no evidence of rhonchi or febrile episodes throughout the hospital course. CT chest done 10/08 revealed no evidence of pulmonary embolism. It did reveal patchy infiltrates in the left lower extremity and left upper lobe, possibly right lower lobe, consistent with pneumonia. Blood cultures were negative after five days. Sputum cultures revealed no growth. The patient was switched over to cefdinir and azithromycin orally upon discharge, after completing five days of ceftaroline and azithromycin. C. Microcytic anemia, likely secondary to iron-deficiency anemia and possibly with acute blood loss anemia. Hemoglobin from 2009 baseline was 11. Upon admission, hemoglobin was 8.6, and he received two units of PRBCs, and his hemoglobin terrence appropriately. Since that point, his hemoglobin has remained stable. His stool for occult blood has been negative. Iron panel is consistent with iron-deficiency anemia. He was put on ferrous sulfate three times a day. 2. 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 Denies any chest pain or palpitations. Cardiac enzymes have been negative. 3. Cellulitis of bilateral lower extremities. Questionable, presented with redness and mild tenderness of bilateral lower extremities. Skin changes appear to be chronic in nature. Has been improving with current antibiotic regimen. 4. Hypertension. Blood pressure remains well controlled. Continue with the Cardizem and amlodipine. 5. 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 His thrombocytosis has been improving upon discharge. 6. Arthritis: Continue with Tylenol. 7. Asthma: Continue with DuoNeb as needed 8. Deep venous thrombosis (DVT) prophylaxis: Continue with sequential compression devices. DISCHARGE MEDICATIONS: The patient will be discharged home on the following medication list: - Eliquis 5 mg by mouth twice a day - azithromycin 500 mg to be taken as directed - cefdinir 300 mg by mouth twice a day to be taken as directed - digoxin 0.25 mg by mouth daily - diltiazem 240 mg by mouth daily - ferrous sulfate 325 mg by mouth three times a day - Aleve 220 mg by mouth twice a day - amlodipine 5 mg by mouth daily - fluticasone/salmeterol one puff inhaled daily DISCHARGE INSTRUCTIONS: The patient has been advised to followup with his primary care provider, nurse practitioner Bailey Lawtno in [place]. The patient has been advised to remain compliant with treatment plan and medications, and return to the emergency room if he experiences any problems. TIME SPENT ON DISCHARGE: Greater than 35 minutes.
== END 2017-10-13 14:31 | disposition home or self-care (01) | DRG 308 ==
LOC: EDBD 15:05 → M ED 15:05 → M ED INP 21:20 → M ICU 22:22 → M PCU 10-10 17:40
PROVIDERS: ADMIT Internal Medicine; ATTEND Internal Medicine
PROC: 30233N1 Transfusion of Nonautologous Red Blood Cells into Peripheral Vein, Percutaneous Approach (ICD-10-PCS; principal; 2017-10-09)
DX: I48.91 Unspecified atrial fibrillation (principal); J18.9 Pneumonia, unspecified organism; D62 Acute posthemorrhagic anemia; Q24.5 Malformation of coronary vessels; K92.2 Gastrointestinal hemorrhage, unspecified; L03.115 Cellulitis of right lower limb; L03.116 Cellulitis of left lower limb; D47.3 Essential (hemorrhagic) thrombocythemia; I10 Essential (primary) hypertension; J45.909 Unspecified asthma, uncomplicated; Z79.899 Other long term (current) drug therapy; Z90.49 Acquired absence of other specified parts of digestive tract; F17.210 Nicotine dependence, cigarettes, uncomplicated

== ENCOUNTER 2018-05-15 18:28 | Inpatient (IN) | payer MEDICARE, MEDICAID ==
[2018-05-15] MEDS: IPRATROPIUM 0.5MG/ALBUTEROL 2.5MG INH SOL UD 3ML (DUONEB)(J7620) NEB ×3 (17:30→17:55)
[2018-05-15 17:45] LABS: ABG BASE EXCESS 8.1 (-2.0-2.0); ABG HCO3 32.1 MEQ/L (22.0-26.0); ABG O2 SATURATION 92.3 % (95.0-99.0); ABG PARTIAL PRESSURE CO2 42.8 mmHg (35.0-45.0); ABG PARTIAL PRESSURE O2 60.7 mmHg (75.0-100.0); ABG STANDARD HCO3 31.8 MEQ/L (22.0-26.0); ABG TOTAL CO2 33.4 MEQ/L (23.0-31.0); ABG pH (ARTERIAL) 7.493 UNITS (7.350-7.450)
[2018-05-15 18:17] LABS: BASO # 0.2 10^3/uL (0.0-0.2); BASO % 1.3 % (0.0-1.0); EOS # 0.4 10^3/uL (0.0-0.50); EOS % 2.8 % (0.0-3.0); HEMATOCRIT 26.7 % (42.0-52.0); HEMOGLOBIN 7.4 g/dl (13.5-17.5); IMMATURE GRANULOCYTE % 0.3 % (0-3.0); LYMPH # 2.4 10^3/uL (1.5-4.5); LYMPH % 17.9 % (24.0-44.0); MEAN CORPUSCULAR HEMOGLOBIN 19.7 pg (27.0-33.0); MEAN CORPUSCULAR HGB CONC 27.7 g/dl (32.0-36.5); MEAN CORPUSCULAR VOLUME 71.2 fl (80.0-96.0); MONO # 1.4 10^3/uL (0.0-0.8); MONO % 10.4 % (0.0-5.0); NEUTROPHILS # 9.1 10^3/uL (1.8-7.7); NEUTROPHILS % 67.3 % (36.0-66.0); PLATELET COUNT, AUTOMATED 700 10^3/uL (150-450); RED BLOOD COUNT 3.75 10^6/uL (4.30-6.10); RED CELL DISTRIBUTION WIDTH 19.2 % (11.5-14.5); WHITE BLOOD COUNT 13.5 10^3/uL (4.0-10.0)
[2018-05-15 18:28] LABS: INR 1.02; PROTHROMBIN TIME 13.5 SECONDS (12.1-14.4)
[2018-05-15 18:40] LABS: LACTIC ACID SEPSIS PROTOCOL 1.3 MMOL/L (0.4-2.0)
[2018-05-15 18:43] LABS: ALBUMIN 2.8 GM/DL (3.2-5.2); ALBUMIN/GLOBULIN RATIO 0.53 (1.00-1.93); ALKALINE PHOSPHATASE 103 U/L (45-117); ALT/SGPT 15 U/L (12-78); ANION GAP 6 MEQ/L (8-16); AST/SGOT 9 U/L (7-37); BILIRUBIN,DIRECT < 0.1 MG/DL (0.0-0.2); BILIRUBIN,TOTAL < 0.1 MG/DL (0.2-1.0); BLOOD UREA NITROGEN 28 MG/DL (7-18); CALCIUM LEVEL 8.6 MG/DL (8.8-10.2); CARBON DIOXIDE LEVEL 33 MEQ/L (21-32); CHLORIDE LEVEL 103 MEQ/L (98-107); CPK CREATINE PHOSPHOKINASE 26 U/L (39-308); CREATININE FOR GFR 1.04 MG/DL (0.70-1.30); GLOMERULAR FILTRATION RATE > 60.0 (>49); GLUCOSE, FASTING 107 MG/DL (70-100); POTASSIUM SERUM 3.7 MEQ/L (3.5-5.1); SODIUM LEVEL 142 MEQ/L (136-145); TOTAL PROTEIN 8.1 GM/DL (6.4-8.2); TROPONIN I < 0.02 NG/ML (< 0.10)
[2018-05-15 18:47] LABS: APPEARANCE, URINE MANUAL TURBID (CLEAR); BILIRUBIN, URINE MANUAL NEGATIVE (NEGATIVE); BLOOD URINE MANUAL POSITIVE (NEGATIVE); COLOR, URINE MANUAL RED (YELLOW); GLUCOSE, URINE (UA) MANUAL NEGATIVE (NEGATIVE); KETONE, URINE MANUAL NEGATIVE (NEGATIVE); LEUKOCYTE ESTERASE, URINE MAN TRACE (NEGATIVE); MICROSCOPIC INDICATED? MAN YES (NO); NITRITE, URINE MANUAL NEGATIVE (NEGATIVE); PROTEIN, URINE MANUAL 3+ mg/dL (NEGATIVE); SPECIFIC GRAVITY,URINE MANUAL 1.019 (1.002-1.035); UROBILINOGEN, URINE MANUAL NORMAL (NORMAL)
[2018-05-15 18:48] LABS: BACTERIA, URINE NONE SEEN; HYALINE CAST, URINE NONE SEEN /lpf (0-1); MICROSCOPIC EXAM PERFORMED; RBC, URINE TNTC /hpf (0-3); SQUAMOUS EPITHELIAL CELL URINE NONE SEEN /hpf (SMALL AMT); WBC, URINE NONE SEEN /hpf (0-3)
[2018-05-15 18:49] LABS: CK-MB VALUE MASS < 1.0 NG/ML (<3.6); MB/CK RELATIVE INDEX 3.84 (< OR =4); NT-PRO BNP 433 PG/ML (<125)
[2018-05-15] MEDS ORDERED: ISOVUE-370 76% 100ML VIAL (Q9967) As Ordered (19:08)
[2018-05-15] MEDS: MORPHINE 4 MG/ML 1ML VIAL/SYRINGE (J2270) IV (20:05)
[2018-05-15] MEDS: NS 500 ML IV (20:05)
[2018-05-15] MEDS: cefTRIAXone SOD 1 GM in D5W MINI-BAG PLUS 50 ML IV (21:00)
[2018-05-15] MEDS ORDERED: ACETAMINOPHEN TAB 650MG DOSE (2X325MG) PO (21:30)
[2018-05-16] MEDS ORDERED: NORCO, ANEXSIA 5/325MG TABLET (HYDROcodone/ACETAMINOPHEN) PO (00:30)
[2018-05-16 05:11] LABS: HEMATOCRIT 25.4 % (42.0-52.0); HEMOGLOBIN 7.5 g/dl (13.5-17.5); MEAN CORPUSCULAR HEMOGLOBIN 21.2 pg (27.0-33.0); MEAN CORPUSCULAR HGB CONC 29.5 g/dl (32.0-36.5); RED BLOOD COUNT 3.53 10^6/uL (4.30-6.10); RED CELL DISTRIBUTION WIDTH 20.7 % (11.5-14.5); WHITE BLOOD COUNT 11.6 10^3/uL (4.0-10.0)
[2018-05-16 05:15] LABS: PLATELET COUNT, AUTOMATED 584 10^3/uL (150-450)
[2018-05-16 05:30] LABS: ANION GAP 8 MEQ/L (8-16); BLOOD UREA NITROGEN 23 MG/DL (7-18); CALCIUM LEVEL 7.9 MG/DL (8.8-10.2); CARBON DIOXIDE LEVEL 27 MEQ/L (21-32); CHLORIDE LEVEL 108 MEQ/L (98-107); CREATININE FOR GFR 0.85 MG/DL (0.70-1.30); GLOMERULAR FILTRATION RATE > 60.0 (>49); GLUCOSE, FASTING 117 MG/DL (70-100); POTASSIUM SERUM 3.7 MEQ/L (3.5-5.1); SODIUM LEVEL 143 MEQ/L (136-145)
[2018-05-16] MEDS: HEPARIN SOD (PORCINE) 5000 UNITS/ML VIAL SC (06:00)
[2018-05-16] MEDS: IPRATROPIUM 0.5MG/ALBUTEROL 2.5MG INH SOL UD 3ML (DUONEB)(J7620) NEB ×3 (07:35→19:43)
[2018-05-16] MEDS: PANTOPRAZOLE 40MG TAB (PROTONIX) PO (07:58)
[2018-05-16] MEDS: DIGOXIN 0.25 MG TAB PO (07:58)
[2018-05-16] MEDS: FERROUS SULFATE 325MG TAB PO ×2 (09:00→21:10)
[2018-05-16] MEDS ORDERED: FERROUS SULFATE 325MG TAB PO (09:00)
[2018-05-16 09:47] LABS: IMMEDIATE SPIN CROSSMATCH 1 2
[2018-05-16 19:01] LABS: HEMATOCRIT 29.7 % (42.0-52.0); HEMOGLOBIN 8.8 g/dl (13.5-17.5)
[2018-05-16] MEDS: cefTRIAXone SOD 1 GM in D5W MINI-BAG PLUS 50 ML IV (21:00)
[2018-05-17 04:43] LABS: HEMATOCRIT 29.8 % (42.0-52.0); HEMOGLOBIN 8.7 g/dl (13.5-17.5); MEAN CORPUSCULAR HEMOGLOBIN 21.9 pg (27.0-33.0); MEAN CORPUSCULAR HGB CONC 29.2 g/dl (32.0-36.5); MEAN CORPUSCULAR VOLUME 74.9 fl (80.0-96.0); PLATELET COUNT, AUTOMATED 624 10^3/uL (150-450); RED BLOOD COUNT 3.98 10^6/uL (4.30-6.10); RED CELL DISTRIBUTION WIDTH 20.5 % (11.5-14.5); WHITE BLOOD COUNT 12.8 10^3/uL (4.0-10.0)
[2018-05-17 05:05] LABS: ANION GAP 7 MEQ/L (8-16); BLOOD UREA NITROGEN 20 MG/DL (7-18); CALCIUM LEVEL 8.2 MG/DL (8.8-10.2); CARBON DIOXIDE LEVEL 26 MEQ/L (21-32); CHLORIDE LEVEL 107 MEQ/L (98-107); CREATININE FOR GFR 0.81 MG/DL (0.70-1.30); GLOMERULAR FILTRATION RATE > 60.0 (>49); GLUCOSE, FASTING 90 MG/DL (70-100); POTASSIUM SERUM 4.1 MEQ/L (3.5-5.1); SODIUM LEVEL 140 MEQ/L (136-145)
[2018-05-17] MEDS: IPRATROPIUM 0.5MG/ALBUTEROL 2.5MG INH SOL UD 3ML (DUONEB)(J7620) NEB ×3 (07:55→19:49)
[2018-05-17] MEDS: PANTOPRAZOLE 40MG TAB (PROTONIX) PO (09:00)
[2018-05-17] MEDS: DIGOXIN 0.25 MG TAB PO (09:34)
[2018-05-17] MEDS: FERROUS SULFATE 325MG TAB PO ×2 (09:34→21:17)
[2018-05-17] MEDS: cefTRIAXone SOD 1 GM in D5W MINI-BAG PLUS 50 ML IV (21:18)
[2018-05-18 04:11] LABS: HEMATOCRIT 29.9 % (42.0-52.0); HEMOGLOBIN 8.8 g/dl (13.5-17.5); MEAN CORPUSCULAR HEMOGLOBIN 21.7 pg (27.0-33.0); MEAN CORPUSCULAR HGB CONC 29.4 g/dl (32.0-36.5); MEAN CORPUSCULAR VOLUME 73.8 fl (80.0-96.0); PLATELET COUNT, AUTOMATED 596 10^3/uL (150-450); RED BLOOD COUNT 4.05 10^6/uL (4.30-6.10); WHITE BLOOD COUNT 10.3 10^3/uL (4.0-10.0)
[2018-05-18 04:30] LABS: ANION GAP 5 MEQ/L (8-16); BLOOD UREA NITROGEN 23 MG/DL (7-18); CALCIUM LEVEL 8.4 MG/DL (8.8-10.2); CARBON DIOXIDE LEVEL 27 MEQ/L (21-32); CHLORIDE LEVEL 106 MEQ/L (98-107); CREATININE FOR GFR 0.86 MG/DL (0.70-1.30); GLOMERULAR FILTRATION RATE > 60.0 (>49); GLUCOSE, FASTING 109 MG/DL (70-100); POTASSIUM SERUM 4.2 MEQ/L (3.5-5.1); SODIUM LEVEL 138 MEQ/L (136-145)
[2018-05-18] MEDS: IPRATROPIUM 0.5MG/ALBUTEROL 2.5MG INH SOL UD 3ML (DUONEB)(J7620) NEB (07:31)
[2018-05-18] MEDS: PANTOPRAZOLE 40MG TAB (PROTONIX) PO (08:26)
[2018-05-18] MEDS: FERROUS SULFATE 325MG TAB PO (08:26)
[2018-05-18] MEDS: DIGOXIN 0.25 MG TAB PO (08:26)
== END 2018-05-18 12:24 | disposition home or self-care (01) | DRG 694 ==
LOC: M ED 18:28 → M ED INP 21:24 → M ICU 23:28
PROC: 30233N1 Transfusion of Nonautologous Red Blood Cells into Peripheral Vein, Percutaneous Approach (ICD-10-PCS; principal; 2018-05-15)
DX: N21.0 Calculus in bladder (principal); D62 Acute posthemorrhagic anemia; Z68.1 Body mass index [BMI] 19.9 or less, adult; N39.0 Urinary tract infection, site not specified; R31.9 Hematuria, unspecified; M06.9 Rheumatoid arthritis, unspecified; D50.9 Iron deficiency anemia, unspecified; F17.200 Nicotine dependence, unspecified, uncomplicated; I10 Essential (primary) hypertension; J44.9 Chronic obstructive pulmonary disease, unspecified; R63.6 Underweight; I48.2 Chronic atrial fibrillation; Z79.01 Long term (current) use of anticoagulants; Z87.442 Personal history of urinary calculi; Z90.49 Acquired absence of other specified parts of digestive tract; B95.2 Enterococcus as the cause of diseases classified elsewhere

== ENCOUNTER 2018-06-26 22:04 | Inpatient (IN) | payer MEDICARE, MEDICAID ==
[2018-06-26] MEDS: IPRATROPIUM 0.5MG/ALBUTEROL 2.5MG INH SOL UD 3ML (DUONEB)(J7620) NEB (23:48)
[2018-06-27 00:31] LABS: VENOUS BASE EXCESS -2.4 (-2.0-2.0); VENOUS HCO3 23.6 MEQ/L (23.0-27.0); VENOUS O2 SATURATION 45.2 % (60.0-80.0); VENOUS PARTIAL PRESSURE CO2 46.3 mmHg (38.0-50.0); VENOUS PARTIAL PRESSURE O2 27.8 mmHg (30.0-50.0); VENOUS PH 7.325 UNITS (7.330-7.430); VENOUS STANDARD HCO3 21.7 MEQ/L
[2018-06-27 00:32] LABS: BASO # 0.1 10^3/uL (0.0-0.2); BASO % 0.8 % (0.0-1.0); HEMATOCRIT 24.7 % (42.0-52.0); HEMOGLOBIN 7.5 g/dl (13.5-17.5); IMMATURE GRANULOCYTE % 0.4 % (0-3.0); LYMPH # 3.1 10^3/uL (1.5-4.5); LYMPH % 16.7 % (24.0-44.0); MEAN CORPUSCULAR HEMOGLOBIN 23.8 pg (27.0-33.0); MEAN CORPUSCULAR HGB CONC 30.4 g/dl (32.0-36.5); MEAN CORPUSCULAR VOLUME 78.4 fl (80.0-96.0); MONO # 0.9 10^3/uL (0.0-0.8); MONO % 5.1 % (0.0-5.0); NEUTROPHILS # 14.2 10^3/uL (1.8-7.7); PLATELET COUNT, AUTOMATED 547 10^3/uL (150-450); RED BLOOD COUNT 3.15 10^6/uL (4.30-6.10); RED CELL DISTRIBUTION WIDTH 20.6 % (11.5-14.5); WHITE BLOOD COUNT 18.5 10^3/uL (4.0-10.0)
[2018-06-27 00:42] LABS: INR 0.98; PROTHROMBIN TIME 13.1 SECONDS (12.1-14.4)
[2018-06-27 00:43] LABS: PARTIAL THROMBOPLASTIN TIME 26.7 SECONDS (25.4-37.6)
[2018-06-27 00:54] LABS: AMMONIA < 10 uMOL/L (<32)
[2018-06-27 00:56] LABS: ANION GAP 8 MEQ/L (8-16); BLOOD UREA NITROGEN 90 MG/DL (7-18); CALCIUM LEVEL 9.3 MG/DL (8.8-10.2); CARBON DIOXIDE LEVEL 25 MEQ/L (21-32); CHLORIDE LEVEL 110 MEQ/L (98-107); CK-MB VALUE MASS < 1.0 NG/ML (<3.6); CPK CREATINE PHOSPHOKINASE 17 U/L (39-308); CREATININE FOR GFR 1.34 MG/DL (0.70-1.30); GLOMERULAR FILTRATION RATE 56.4 (>49); GLUCOSE, FASTING 131 MG/DL (70-100); MB/CK RELATIVE INDEX 5.88 (< OR =4); POTASSIUM SERUM 4.1 MEQ/L (3.5-5.1); SODIUM LEVEL 143 MEQ/L (136-145); TROPONIN I < 0.02 NG/ML (< 0.10)
[2018-06-27 01:09] LABS: AMORPHOUS SEDIMENT RFX SMALL (NEGATIVE); KETONE, URINE AUTO RFX NEGATIVE (NEGATIVE); LEUKOCYTE ESTERASE UR AUTO RFX 3+ (NEGATIVE); MUCUS, URINE RFX SMALL (NEGATIVE); NITRITE, URINE AUTO RFX NEGATIVE (NEGATIVE); RBC, URINE AUTO RFX TNTC /HPF (0-3); SPECIFIC GRAVITY UR AUTO RFX 1.014 (1.002-1.035); SQUAM EPITHELIAL CELL UR AURFX 9 /HPF (0-6); WBC, URINE AUTO RFX TNTC /HPF (0-3)
[2018-06-27] MEDS: LevoFLOXacin IV 750 MG in APPROPRIATE DILUENT 1 EA IV (01:36)
[2018-06-27] MEDS: PANTOPRAZOLE SODIUM 40 MG in D5W 50 ML IV ×5 (02:00→22:35)
[2018-06-27] MEDS ORDERED: IPRATROPIUM 0.5MG/ALBUTEROL 2.5MG INH SOL UD 3ML (DUONEB)(J7620) NEB (02:15)
[2018-06-27] MEDS: NS 1,000 ML IV ×3 (03:00→12:02)
[2018-06-27 03:31] LABS: DIGOXIN LEVEL 0.6 NG/ML (0.5-2.0)
[2018-06-27 07:12] LABS: BASO # 0.2 10^3/uL (0.0-0.2); EOS % 0.1 % (0.0-3.0); HEMATOCRIT 24.5 % (42.0-52.0); HEMOGLOBIN 7.7 g/dl (13.5-17.5); IMMATURE GRANULOCYTE % 0.7 % (0-3.0); LYMPH # 3.1 10^3/uL (1.5-4.5); LYMPH % 17.1 % (24.0-44.0); MEAN CORPUSCULAR HEMOGLOBIN 25.3 pg (27.0-33.0); MEAN CORPUSCULAR HGB CONC 31.4 g/dl (32.0-36.5); MEAN CORPUSCULAR VOLUME 80.6 fl (80.0-96.0); MONO # 1.6 10^3/uL (0.0-0.8); NEUTROPHILS # 12.9 10^3/uL (1.8-7.7); NEUTROPHILS % 72.1 % (36.0-66.0); PLATELET COUNT, AUTOMATED 460 10^3/uL (150-450); RED BLOOD COUNT 3.04 10^6/uL (4.30-6.10); RED CELL DISTRIBUTION WIDTH 19.8 % (11.5-14.5); WHITE BLOOD COUNT 17.9 10^3/uL (4.0-10.0)
[2018-06-27 07:30] LABS: ANION GAP 7 MEQ/L (8-16); BLOOD UREA NITROGEN 81 MG/DL (7-18); CALCIUM LEVEL 8.5 MG/DL (8.8-10.2); CARBON DIOXIDE LEVEL 24 MEQ/L (21-32); CHLORIDE LEVEL 111 MEQ/L (98-107); CREATININE FOR GFR 1.19 MG/DL (0.70-1.30); GLOMERULAR FILTRATION RATE > 60.0 (>49); GLUCOSE, FASTING 113 MG/DL (70-100); POTASSIUM SERUM 3.9 MEQ/L (3.5-5.1); SODIUM LEVEL 142 MEQ/L (136-145); TROPONIN I 0.02 NG/ML (< 0.10)
[2018-06-27] MEDS: IPRATROPIUM 0.5MG/ALBUTEROL 2.5MG INH SOL UD 3ML (DUONEB)(J7620) NEB ×3 (07:32→19:28)
[2018-06-27] MEDS: DIGOXIN 0.25 MG TAB PO (09:09)
[2018-06-27] MEDS: FERROUS GLUCONATE 324 MG TAB PO ×3 (09:53→20:18)
[2018-06-27 13:44] LABS: IMMEDIATE SPIN CROSSMATCH 1 4
[2018-06-27] MEDS ORDERED: LIDOCAINE 2% INJ 100 MG/5 ML SDV (FOR ANES.) As Ordered (14:44)
[2018-06-27] MEDS ORDERED: PROPOFOL 200 MG/20 ML VIAL As Ordered (14:44)
[2018-06-27] MEDS ORDERED: fentaNYL 100 MCG/2 ML INJECTION (J3010) As Ordered (14:44)
[2018-06-27 16:36] LABS: HEMATOCRIT 24.8 % (42.0-52.0); HEMOGLOBIN 7.8 g/dl (13.5-17.5); MEAN CORPUSCULAR HEMOGLOBIN 25.9 pg (27.0-33.0); MEAN CORPUSCULAR HGB CONC 31.5 g/dl (32.0-36.5); MEAN CORPUSCULAR VOLUME 82.4 fl (80.0-96.0); PLATELET COUNT, AUTOMATED 412 10^3/uL (150-450); RED BLOOD COUNT 3.01 10^6/uL (4.30-6.10); RED CELL DISTRIBUTION WIDTH 18.5 % (11.5-14.5); WHITE BLOOD COUNT 18.5 10^3/uL (4.0-10.0)
[2018-06-27] MEDS: ONDANSETRON 4MG/2ML VIAL (J2405) IV (19:29)
[2018-06-27 22:22] LABS: HEMATOCRIT 28.8 % (42.0-52.0); HEMOGLOBIN 9.1 g/dl (13.5-17.5); MEAN CORPUSCULAR HEMOGLOBIN 26.5 pg (27.0-33.0); MEAN CORPUSCULAR HGB CONC 31.6 g/dl (32.0-36.5); MEAN CORPUSCULAR VOLUME 83.7 fl (80.0-96.0); PLATELET COUNT, AUTOMATED 407 10^3/uL (150-450); RED BLOOD COUNT 3.44 10^6/uL (4.30-6.10)
[2018-06-28] MEDS: IPRATROPIUM 0.5MG/ALBUTEROL 2.5MG INH SOL UD 3ML (DUONEB)(J7620) NEB ×4 (00:35→20:03)
[2018-06-28] MEDS: ACETAMINOPHEN TAB 650MG DOSE (2X325MG) PO ×2 (00:53→21:24)
[2018-06-28] MEDS: PANTOPRAZOLE SODIUM 40 MG in D5W 50 ML IV (04:00)
[2018-06-28 04:37] LABS: HEMATOCRIT 27.3 % (42.0-52.0); HEMOGLOBIN 8.7 g/dl (13.5-17.5); MEAN CORPUSCULAR HEMOGLOBIN 26.3 pg (27.0-33.0); MEAN CORPUSCULAR HGB CONC 31.9 g/dl (32.0-36.5); MEAN CORPUSCULAR VOLUME 82.5 fl (80.0-96.0); PLATELET COUNT, AUTOMATED 419 10^3/uL (150-450); RED BLOOD COUNT 3.31 10^6/uL (4.30-6.10); RED CELL DISTRIBUTION WIDTH 17.7 % (11.5-14.5); WHITE BLOOD COUNT 18.5 10^3/uL (4.0-10.0)
[2018-06-28 07:56] LABS: ANION GAP 6 MEQ/L (8-16); BLOOD UREA NITROGEN 47 MG/DL (7-18); CALCIUM LEVEL 8.2 MG/DL (8.8-10.2); CARBON DIOXIDE LEVEL 24 MEQ/L (21-32); CHLORIDE LEVEL 116 MEQ/L (98-107); CREATININE FOR GFR 0.89 MG/DL (0.70-1.30); GLOMERULAR FILTRATION RATE > 60.0 (>49); GLUCOSE, FASTING 97 MG/DL (70-100); POTASSIUM SERUM 4.1 MEQ/L (3.5-5.1); SODIUM LEVEL 146 MEQ/L (136-145)
[2018-06-28] MEDS: DIGOXIN 0.25 MG TAB PO (08:00)
[2018-06-28] MEDS: FERROUS GLUCONATE 324 MG TAB PO ×3 (08:01→20:18)
[2018-06-28] MEDS: PANTOPRAZOLE 40MG TAB (PROTONIX) PO ×2 (08:01→20:18)
[2018-06-28] MEDS: diltiaZEM **CD** 180 MG CAP PO (08:01)
[2018-06-28] MEDS: AMPICILLIN SOD 1 GM in D5W 50 ML IV ×3 (10:18→20:18)
[2018-06-28 10:25] LABS: HEMATOCRIT 27.8 % (42.0-52.0); MEAN CORPUSCULAR HEMOGLOBIN 26.7 pg (27.0-33.0); MEAN CORPUSCULAR HGB CONC 32.4 g/dl (32.0-36.5); MEAN CORPUSCULAR VOLUME 82.5 fl (80.0-96.0); PLATELET COUNT, AUTOMATED 417 10^3/uL (150-450); RED BLOOD COUNT 3.37 10^6/uL (4.30-6.10); RED CELL DISTRIBUTION WIDTH 17.9 % (11.5-14.5); WHITE BLOOD COUNT 16.1 10^3/uL (4.0-10.0)
[2018-06-28] MEDS: APIXABAN 5 MG TAB (ELIQUIS) PO ×2 (12:25→20:18)
[2018-06-28 12:37] LABS: AMORPHOUS SEDIMENT SMALL (NEGATIVE); APPEARANCE, URINE HAZY (CLEAR); BACTERIA, URINE AUTO 1+ (NEGATIVE); BILIRUBIN, URINE AUTO NEGATIVE (NEGATIVE); BLOOD, URINE BLOOD 3+ (NEGATIVE); COLOR, URINE YELLOW (YELLOW); GLUCOSE, URINE (UA) AUTO NEGATIVE (NEGATIVE); KETONE, URINE AUTO NEGATIVE (NEGATIVE); LEUKOCYTE ESTERASE, URINE AUTO 3+ (NEGATIVE); MUCUS, URINE SMALL (NEGATIVE); NITRITE, URINE AUTO NEGATIVE (NEGATIVE); PROTEIN, URINE AUTO 1+ mg/dL (NEGATIVE); RBC, URINE AUTO 148 /HPF (0-3); SPECIFIC GRAVITY URINE AUTO 1.013 (1.002-1.035); SQUAMOUS EPITHELIAL CELL UR AU 2 /HPF (0-6); UROBILINOGEN, URINE AUTO 0.2 mg/dL (0.0-2.0); WBC, URINE AUTO 71 /HPF (0-3)
[2018-06-28 16:15] LABS: HEMATOCRIT 26.3 % (42.0-52.0); HEMOGLOBIN 8.5 g/dl (13.5-17.5); MEAN CORPUSCULAR HGB CONC 32.3 g/dl (32.0-36.5); MEAN CORPUSCULAR VOLUME 83.5 fl (80.0-96.0); PLATELET COUNT, AUTOMATED 380 10^3/uL (150-450); RED BLOOD COUNT 3.15 10^6/uL (4.30-6.10); RED CELL DISTRIBUTION WIDTH 18.1 % (11.5-14.5); WHITE BLOOD COUNT 14.7 10^3/uL (4.0-10.0)
[2018-06-28 22:18] LABS: HEMATOCRIT 27.8 % (42.0-52.0); HEMOGLOBIN 8.9 g/dl (13.5-17.5); MEAN CORPUSCULAR HEMOGLOBIN 26.8 pg (27.0-33.0); MEAN CORPUSCULAR VOLUME 83.7 fl (80.0-96.0); PLATELET COUNT, AUTOMATED 409 10^3/uL (150-450); RED BLOOD COUNT 3.32 10^6/uL (4.30-6.10); RED CELL DISTRIBUTION WIDTH 18.5 % (11.5-14.5); WHITE BLOOD COUNT 14.6 10^3/uL (4.0-10.0)
[2018-06-29] MEDS ORDERED: LevoFLOXacin IV 750 MG in APPROPRIATE DILUENT 1 EA IV
[2018-06-29] MEDS: AMPICILLIN SOD 1 GM in D5W 50 ML IV ×2 (03:37→09:34)
[2018-06-29] MEDS: IPRATROPIUM 0.5MG/ALBUTEROL 2.5MG INH SOL UD 3ML (DUONEB)(J7620) NEB ×3 (04:09→13:43)
[2018-06-29] MEDS: FERROUS GLUCONATE 324 MG TAB PO (09:34)
[2018-06-29] MEDS: APIXABAN 5 MG TAB (ELIQUIS) PO (09:34)
[2018-06-29] MEDS: diltiaZEM **CD** 180 MG CAP PO (09:36)
[2018-06-29] MEDS: PANTOPRAZOLE 40MG TAB (PROTONIX) PO (09:37)
[2018-06-29] MEDS: DIGOXIN 0.25 MG TAB PO (09:37)
== END 2018-06-29 14:42 | disposition home or self-care (01) | DRG 378 ==
LOC: M ED 22:04 → M ED INP 06-27 02:39 → M PCU 06-27 15:26
PROC: 0DB78ZX Excision of Stomach, Pylorus, Via Natural or Artificial Opening Endoscopic, Diagnostic (ICD-10-PCS; principal; 2018-06-27 09:03)
PROC: 30233N1 Transfusion of Nonautologous Red Blood Cells into Peripheral Vein, Percutaneous Approach (ICD-10-PCS; 2018-06-27 14:29)
DX: K25.4 Chronic or unspecified gastric ulcer with hemorrhage (principal); N39.0 Urinary tract infection, site not specified; N17.9 Acute kidney failure, unspecified; D62 Acute posthemorrhagic anemia; J44.9 Chronic obstructive pulmonary disease, unspecified; R31.29 Other microscopic hematuria; I10 Essential (primary) hypertension; I48.91 Unspecified atrial fibrillation; N40.0 Benign prostatic hyperplasia without lower urinary tract symptoms; Z87.442 Personal history of urinary calculi; Z90.49 Acquired absence of other specified parts of digestive tract; Z79.899 Other long term (current) drug therapy; Z79.01 Long term (current) use of anticoagulants; B95.2 Enterococcus as the cause of diseases classified elsewhere

== ENCOUNTER 2020-06-13 23:44 | Inpatient (IN) | payer MEDICARE, MEDICAID ==
[~2020-06-13 23:44] MED LIST changes: -/TAMS4CA; +ALEV220T22 PO; +AMLO5TAB6 PO; +AMPI500C9 PO; +AZIT-12 PO; +BREO1INH INH; +CARD180C4 PO; +CART240C3 PO; +CEFD300CAP PO; +DIGO0.253 PO; +DILT120C77 PO; +DILT1TAB3 PO; +ELIQ5TAB PO; +FERR1TAB8 PO; +FERR32TA PO; +FLOM0.4C39; -FUROSEMIDE 40 MG/4 ML VIAL (J1940) IV SCH; +GASTROGRAFIN SOLUTION 30ML (Q9963) As Ordered ONE; +MORPHINE 4 MG/ML 1ML VIAL/SYRINGE (J2270) As Ordered ONE; +ONDANSETRON 4MG/2ML VIAL As Ordered ONE; +PANT40TA3 PO
[2020-06-14] MEDS ORDERED: ISOVUE-370 76% 100ML VIAL As Ordered ONE (00:44)
[2020-06-14] MEDS ORDERED: ZOSYN 3.375GM VIAL (J2543) As Ordered ONE ×2 (03:07→21:47)
[2020-06-14] MEDS ORDERED: PANTOPRAZOLE 40MG VIAL (C9113 PER 1) As Ordered ONE (04:24)
[2020-06-14] MEDS ORDERED: ZOSYN 3.375GM VIAL (J2543) ONE ×2 (09:59→16:25)
[2020-06-14] MEDS ORDERED: POLYETHYLENE GLYCOL (MIRALAX) 238GM BOTTLE ONE (13:00)
[2020-06-14] MEDS ORDERED: FUROSEMIDE 40MG/4ML VIAL (J1940) ONE (13:17)
[2020-06-14] MEDS ORDERED: CALCIUM GLUCONATE 1,000MG/10ML VIAL (100MG/ML) (J0610) ONE (13:17)
[2020-06-14] MEDS ORDERED: PANTOPRAZOLE 40MG VIAL (C9113 PER 1) ONE (16:25)
[2020-06-14] MEDS ORDERED: IBUPROFEN 100 MG/5 ML SUSP UDC DYE FREE As Ordered ONE (21:28)
[2020-06-15] MEDS ORDERED: ZOSYN 3.375GM VIAL (J2543) As Ordered ONE ×3 (03:25→21:56)
[2020-06-15] MEDS ORDERED: PANTOPRAZOLE 40MG VIAL (C9113 PER 1) As Ordered ONE (03:25)
[2020-06-15] MEDS ORDERED: ZOSYN 3.375GM VIAL (J2543) ONE ×3 (03:25→20:44)
[2020-06-15] MEDS ORDERED: PANTOPRAZOLE 40MG VIAL (C9113 PER 1) ONE (03:25)
[2020-06-15] MEDS ORDERED: FERROUS SULFATE 325MG TAB ONE (09:55)
[2020-06-15] MEDS ORDERED: FERROUS SULFATE 325MG TAB As Ordered ONE (21:55)
[2020-06-16] MEDS ORDERED: ZOSYN 3.375GM VIAL (J2543) ONE ×2 (04:35→10:00)
[2020-06-16] MEDS ORDERED: PANTOPRAZOLE 40MG VIAL (C9113 PER 1) As Ordered ONE (04:35)
[2020-06-16] MEDS ORDERED: PANTOPRAZOLE 40MG VIAL (C9113 PER 1) ONE (04:35)
[2020-06-16] MEDS ORDERED: ZOSYN 3.375GM VIAL (J2543) As Ordered ONE ×2 (04:35→10:00)
[2020-06-16] MEDS ORDERED: FERROUS SULFATE 325MG TAB ONE (10:00)
[2020-06-16] MEDS ORDERED: FERROUS SULFATE 325MG TAB As Ordered ONE (10:00)
[2020-07-10 14:12] LABS: ALBUMIN 2.9 GM/DL (3.2-5.2); ALT/SGPT 20 U/L (12-78); BILIRUBIN,DIRECT < 0.1 MG/DL (0.0-0.2); BILIRUBIN,TOTAL 0.3 MG/DL (0.2-1.0); BLOOD UREA NITROGEN 34 MG/DL (7-18); CALCIUM LEVEL 8.6 MG/DL (8.8-10.2); CARBON DIOXIDE LEVEL 27 MEQ/L (21-32); CHLORIDE LEVEL 104 MEQ/L (98-107); CK-MB VALUE MASS < 1.0 NG/ML (<3.6); CPK CREATINE PHOSPHOKINASE 30 U/L (39-308); CREATININE FOR GFR 0.93 MG/DL (0.70-1.30); GLOMERULAR FILTRATION RATE > 60.0 (>42); GLUCOSE, FASTING 100 MG/DL (70-100); LIPASE 312 U/L (73-393); MB/CK RELATIVE INDEX 3.33 (< OR =4); POTASSIUM SERUM 4.6 MEQ/L (3.5-5.1); SODIUM LEVEL 139 MEQ/L (136-145); TOTAL PROTEIN 6.9 GM/DL (6.4-8.2); TROPONIN I < 0.02 NG/ML (< 0.10)
[2020-07-15 23:54] LABS: HEMATOCRIT 30.5 % (42.0-52.0); HEMOGLOBIN 9.5 g/dl (13.5-17.5); MEAN CORPUSCULAR HEMOGLOBIN 25.5 pg (27.0-33.0); MEAN CORPUSCULAR HGB CONC 31.1 g/dl (32.0-36.5); MEAN CORPUSCULAR VOLUME 81.8 fl (80.0-96.0); PLATELET COUNT, AUTOMATED 505 10^3/uL (150-450); RED BLOOD COUNT 3.73 10^6/uL (4.30-6.10); WHITE BLOOD COUNT 13.9 10^3/uL (4.0-10.0)
[2020-07-17 10:51] LABS: BASO # 0.1 10^3/uL (0.0-0.2); BASO % 0.3 % (0.0-1.0); EOS # 0.3 10^3/uL (0.0-0.5); EOS % 1.8 % (0.0-3.0); LYMPH # 4.1 10^3/uL (1.5-5.0); MEAN CORPUSCULAR HEMOGLOBIN 22.3 pg (27.0-33.0); MEAN CORPUSCULAR HGB CONC 28.9 g/dl (32.0-36.5); MEAN CORPUSCULAR VOLUME 77.2 fl (80.0-96.0); MONO # 1.7 10^3/uL (0.0-0.8); MONO % 10.2 % (0.0-5.0); NEUTROPHILS # 10.2 10^3/uL (1.5-8.5); PLATELET COUNT, AUTOMATED 694 10^3/uL (150-450); RED BLOOD COUNT 1.84 10^6/uL (4.30-6.10); WHITE BLOOD COUNT 16.4 10^3/uL (4.0-10.0)
[2020-07-17 10:54] LABS: HEMATOCRIT 14.2 % (42.0-52.0); HEMOGLOBIN 4.1 g/dl (13.5-17.5)
[2020-07-17 10:56] LABS: ANISOCYTOSIS 2+; HYPOCHROMASIA 2+; MICROCYTOSIS 1+
[2020-07-17 10:58] LABS: INR 0.92; PLATELET ESTIMATE INCREASED (NORMAL); POLYCHROMASIA 1+; PROTHROMBIN TIME 12.5 SECONDS (11.8-14.0); TARGET CELLS 1+; TEAR DROP CELLS 1+
== END 2020-06-16 14:13 | disposition home or self-care (01) | DRG 812 ==
LOC: M ED 23:44 → M PCU 06-14 06:45
PROVIDERS: ADMIT Internal Medicine Nephrology; ATTEND Internal Medicine Nephrology
PROC: 30233N1 Transfusion of Nonautologous Red Blood Cells into Peripheral Vein, Percutaneous Approach (ICD-10-PCS; 2020-06-14)
PROC: 0DB98ZX Excision of Duodenum, Via Natural or Artificial Opening Endoscopic, Diagnostic (ICD-10-PCS; principal; 2020-06-15)
PROC: 0DBN8ZX Excision of Sigmoid Colon, Via Natural or Artificial Opening Endoscopic, Diagnostic (ICD-10-PCS; 2020-06-15)
DX: D62 Acute posthemorrhagic anemia (principal); K92.2 Gastrointestinal hemorrhage, unspecified; K26.7 Chronic duodenal ulcer without hemorrhage or perforation; J44.9 Chronic obstructive pulmonary disease, unspecified; N40.0 Benign prostatic hyperplasia without lower urinary tract symptoms; N28.89 Other specified disorders of kidney and ureter; I73.9 Peripheral vascular disease, unspecified; N20.0 Calculus of kidney; K57.30 Diverticulosis of large intestine without perforation or abscess without bleeding; D12.5 Benign neoplasm of sigmoid colon; K64.8 Other hemorrhoids; Z79.899 Other long term (current) drug therapy

== ENCOUNTER → 2021-07-31 | Outpatient (CLI) | payer MEDICARE, MEDICAID ==
[~2021-07-31] MED LIST changes: +AMLO1TAB24 PO; -AMLO5TAB6 PO; -GASTROGRAFIN SOLUTION 30ML (Q9963) As Ordered ONE; -MORPHINE 4 MG/ML 1ML VIAL/SYRINGE (J2270) As Ordered ONE; -ONDANSETRON 4MG/2ML VIAL As Ordered ONE; +PANT40TA29 PO; -PANT40TA3 PO
[2021-07-31 17:47] LABS: ALT/SGPT 16 U/L (12-78); BILIRUBIN,TOTAL 0.3 MG/DL (0.2-1.0); BLOOD UREA NITROGEN 37 MG/DL (7-18); CALCIUM LEVEL 9.3 MG/DL (8.8-10.2); CARBON DIOXIDE LEVEL 31 MEQ/L (21-32); CHLORIDE LEVEL 106 MEQ/L (98-107); CREATININE FOR GFR 0.95 MG/DL (0.70-1.30); GLOMERULAR FILTRATION RATE > 60.0 (>42); GLUCOSE, FASTING 91 MG/DL (70-100); POTASSIUM SERUM 4.5 MEQ/L (3.5-5.1); SODIUM LEVEL 140 MEQ/L (136-145)
[2021-07-31 17:48] LABS: ALBUMIN 3.2 GM/DL (3.2-5.2); CHOLESTEROL LEVEL 135 MG/DL (<200); CHOLESTEROL RISK RATIO 2.755 (<5); HDL CHOLESTEROL 49 MG/DL (>40); LDL CHOLESTEROL 68 MG/DL (<100); NON-HDL-C 86 MG/DL; TOTAL PROTEIN 7.6 GM/DL (6.4-8.2); TRIGLYCERIDES LEVEL 91 MG/DL (<150)
== END ==
LOC: M PLALAB 14:37
PROVIDERS: ATTEND Student in an Organized Health Care Education/Training Program
DX: I10 Essential (primary) hypertension (principal)

== ENCOUNTER → 2023-10-21 | Outpatient (CLI) | payer MEDICARE, MEDICAID | LOC: M RAD 14:50 | PROVIDERS: ATTEND Podiatrist Foot & Ankle Surgery | DX: I73.89 Other specified peripheral vascular diseases (principal) ==

== ENCOUNTER → 2024-01-27 | Outpatient (CLI) | payer MEDICARE, MEDICAID ==
[2024-01-27 14:45] LABS: BASO # 0.2 10^3/uL (0.0-0.2); BASO % 1.3 % (0.0-1.0); EOS # 0.5 10^3/uL (0.0-0.5); HEMATOCRIT 32.7 % (42.0-52.0); HEMOGLOBIN 9.9 g/dl (13.5-17.5); LYMPH # 5.7 10^3/uL (1.5-5.0); LYMPH % 37.7 % (24.0-44.0); MEAN CORPUSCULAR HEMOGLOBIN 24.6 pg (27.0-33.0); MEAN CORPUSCULAR HGB CONC 30.3 g/dl (32.0-36.5); MEAN CORPUSCULAR VOLUME 81.3 fl (80.0-96.0); MONO # 1.3 10^3/uL (0.0-0.8); MONO % 8.5 % (2.0-8.0); NEUTROPHILS # 7.5 10^3/uL (1.5-8.5); NEUTROPHILS % 49.3 % (36.0-66.0); PLATELET COUNT, AUTOMATED 660 10^3/uL (150-450); RED BLOOD COUNT 4.02 10^6/uL (4.30-6.10); WHITE BLOOD COUNT 15.1 10^3/uL (4.0-10.0)
[2024-01-27 14:51] LABS: ERYTHROCYTE SEDIMENTATION RATE 85 mm/hr (0-20)
[2024-01-27 14:57] LABS: HEMOGLOBIN A1c 5.6 % (4.0-6.0)
[2024-01-27 15:13] LABS: URIC ACID 3.5 MG/DL (3.7-9.2)
[2024-01-27 15:16] LABS: ALBUMIN 3.2 G/DL (3.2-5.2); ALKALINE PHOSPHATASE 95 U/L (46-116); ALT/SGPT < 9 U/L (7.0-40); AST/SGOT 12 U/L (<34); BILIRUBIN,TOTAL 0.2 MG/DL (0.3-1.2); BLOOD UREA NITROGEN 28 MG/DL (9-23); CALCIUM LEVEL 8.6 MG/DL (8.3-10.6); CARBON DIOXIDE LEVEL 29 MMOL/L (20-31); CHLORIDE LEVEL 107 MMOL/L (98-107); CHOLESTEROL LEVEL 124 MG/DL (<200); CHOLESTEROL RISK RATIO 2.83 (<5); CREATININE FOR GFR 0.79 MG/DL (0.70-1.30); DIGOXIN LEVEL 2.1 NG/ML (0.8-2.0); GLOMERULAR FILTRATION RATE > 60.0 (>42); GLUCOSE, FASTING 98 MG/DL (74-106); HDL CHOLESTEROL 43.8 MG/DL (>40); NON-HDL-C 80.2 MG/DL; POTASSIUM SERUM 4.7 MMOL/L (3.5-5.1); SODIUM LEVEL 138 MMOL/L (136-145); TOTAL PROTEIN 7.1 G/DL (5.7-8.2); TRIGLYCERIDES LEVEL 71 MG/DL (<150)
[2024-01-27 15:18] LABS: FREE T4 0.92 NG/DL (0.89-1.76); THYROID STIMULATING HORMONE 2.287 uIU/ML (0.55-4.78)
[2024-01-27 15:33] LABS: RHEUMATOID FACTOR QUANT 129.6 IU/ML (<14)
== END ==
LOC: M LAB 14:09
PROVIDERS: ATTEND Physician Assistant
DX: M06.9 Rheumatoid arthritis, unspecified (principal); I10 Essential (primary) hypertension; I73.9 Peripheral vascular disease, unspecified; I48.91 Unspecified atrial fibrillation

== ENCOUNTER → 2024-01-27 | Outpatient (CLI) | payer MEDICARE, MEDICAID ==
[2024-01-27 14:44] LABS: HEMATOCRIT 32.8 % (42.0-52.0); HEMOGLOBIN 9.9 g/dl (13.5-17.5); MEAN CORPUSCULAR HEMOGLOBIN 24.7 pg (27.0-33.0); MEAN CORPUSCULAR HGB CONC 30.2 g/dl (32.0-36.5); MEAN CORPUSCULAR VOLUME 81.8 fl (80.0-96.0); PLATELET COUNT, AUTOMATED 636 10^3/uL (150-450); RED BLOOD COUNT 4.01 10^6/uL (4.30-6.10); WHITE BLOOD COUNT 15.1 10^3/uL (4.0-10.0)
[2024-01-27 14:59] LABS: INR 1.01; PARTIAL THROMBOPLASTIN TIME 31.6 SECONDS (24.8-34.2)
[2024-01-27 15:15] LABS: BLOOD UREA NITROGEN 28 MG/DL (9-23); CALCIUM LEVEL 8.7 MG/DL (8.3-10.6); CARBON DIOXIDE LEVEL 29 MMOL/L (20-31); CHLORIDE LEVEL 109 MMOL/L (98-107); CREATININE FOR GFR 0.79 MG/DL (0.70-1.30); GLOMERULAR FILTRATION RATE > 60.0 (>42); GLUCOSE, FASTING 98 MG/DL (74-106); POTASSIUM SERUM 4.7 MMOL/L (3.5-5.1); SODIUM LEVEL 137 MMOL/L (136-145)
== END ==
LOC: M LAB 14:07
PROVIDERS: ATTEND Physician Assistant
DX: D69.8 Other specified hemorrhagic conditions (principal)

== ENCOUNTER 2024-04-08 17:47 | Inpatient (IN) | payer MEDICARE, MEDICAID ==
[~2024-04-08] VITALS: Ht 182.9 cm; Wt 52.8 kg
[2024-04-08] VITALS (9 sets, daily range): BP systolic 102–155; BP diastolic 64–88; TEMP 97.6–98.8; O2SAT 97–98
[2024-04-08] MEDS: NS 1,000 ML IV SCH (18:12)
[2024-04-08 18:38] LABS: MEAN CORPUSCULAR HEMOGLOBIN 22.4 pg (27.0-33.0); MEAN CORPUSCULAR HGB CONC 30.3 g/dl (32.0-36.5); MEAN CORPUSCULAR VOLUME 73.9 fl (80.0-96.0); PLATELET COUNT, AUTOMATED 576 10^3/uL (150-450); RED BLOOD COUNT 2.41 10^6/uL (4.30-6.10); WHITE BLOOD COUNT 23.7 10^3/uL (4.0-10.0)
[2024-04-08 18:43] LABS: HEMATOCRIT 17.8 % (42.0-52.0)
[2024-04-08 18:46] LABS: HEMOGLOBIN 5.4 g/dl (13.5-17.5)
[2024-04-08 18:56] LABS: LIPASE 30 U/L (12-53)
[2024-04-08 18:58] LABS: ALBUMIN 2.6 G/DL (3.2-5.2); ALKALINE PHOSPHATASE 69 U/L (46-116); ALT/SGPT 9 U/L (7.0-40); AST/SGOT 8 U/L (<34); BILIRUBIN,DIRECT < 0.1 MG/DL (<0.4); BILIRUBIN,TOTAL < 0.2 MG/DL (0.3-1.2); BLOOD UREA NITROGEN 94 MG/DL (9-23); CALCIUM LEVEL 9.1 MG/DL (8.3-10.6); CARBON DIOXIDE LEVEL 23 MMOL/L (20-31); CHLORIDE LEVEL 111 MMOL/L (98-107); CK-MB VALUE MASS < 1.0 NG/ML (<3.6); CPK CREATINE PHOSPHOKINASE 32 U/L (46-171); CREATININE FOR GFR 1.01 MG/DL (0.70-1.30); GLOMERULAR FILTRATION RATE > 60.0 (>42); GLUCOSE, FASTING 130 MG/DL (74-106); MB/CK RELATIVE INDEX 3.12 (< OR =4); POTASSIUM SERUM 4.6 MMOL/L (3.5-5.1); SODIUM LEVEL 141 MMOL/L (136-145)
[2024-04-08] MEDS: PANTOPRAZOLE 40MG VIAL IV ONE (19:06)
[2024-04-08] MEDS ORDERED: ISOVUE-370 76% 100ML VIAL As Ordered ONE (19:09)
[2024-04-08 19:19] LABS: ATYPICAL LYMPH 1 % (0-5); BASOPHILS 1 % (0-1); LYMPHOCYTES 34 % (16-44); NEUTROPHILS 64 % (28-66); PLATELET ESTIMATE INCREASED (NORMAL)
[2024-04-08 19:20] LABS: INR 1.02; PARTIAL THROMBOPLASTIN TIME 25.6 SECONDS (24.8-34.2); PROTHROMBIN TIME 13.1 SECONDS (12.5-14.5)
[2024-04-08 19:20] LABS: ANISOCYTOSIS 1+; HYPOCHROMASIA 1+; MICROCYTOSIS 2+; POIKILOCYTOSIS 1+
[2024-04-08 19:22] LABS: OVALOCYTES 1+
[2024-04-08 19:38] LABS: DIGOXIN LEVEL 1.3 NG/ML (0.8-2.0)
[2024-04-08] MEDS ORDERED: PANT20TA6 PO (20:48)
[2024-04-08] MEDS ORDERED: GABA-1171 PO (20:54)
[2024-04-08] MEDS ORDERED: CLOP75TA2 PO (20:54)
[2024-04-08] MEDS ORDERED: ASPI-226 PO (20:54)
[2024-04-08] MEDS ORDERED: HYDR-3363 PO (20:54)
[2024-04-08] MEDS ORDERED: SUCR1TAB56 PO (20:54)
[2024-04-08] MEDS ORDERED: IPRA0.00 INH (20:54)
[2024-04-08] MEDS ORDERED: LISI10TA22 PO (20:54)
[2024-04-08] MEDS ORDERED: HOME MED LIST COMPLETE! XX SCH (21:10)
[2024-04-08] MEDS ORDERED: IPRATROPIUM 0.5MG/ALBUTEROL 2.5MG INH SOL UD 3ML (DUONEB) INH PRN (23:10)
[2024-04-09] VITALS (10 sets, daily range): BP systolic 114–146; BP diastolic 56–82; TEMP 97.5–98.8; O2SAT 94–100
[2024-04-09] MEDS ORDERED: LR 1,000 ML IV SCH (00:30)
[2024-04-09] MEDS: LIDOCAINE 2% 5ML JELLY UROJET TOP ONE (00:50)
[2024-04-09] MEDS: LR 1,000 ML IV SCH (01:00)
[2024-04-09] MEDS: CIPROFLOXACIN 400 MG in IV 1 EA IV SCH (02:21)
[2024-04-09] MEDS ORDERED: traMADol 50 MG TAB PO ONE (03:35)
[2024-04-09] MEDS: MORPHINE 2 MG/ML 1ML VIAL IV PRN (03:53)
[2024-04-09 06:01] LABS: HEMATOCRIT 23.6 % (42.0-52.0); MEAN CORPUSCULAR HEMOGLOBIN 25.8 pg (27.0-33.0); MEAN CORPUSCULAR HGB CONC 33.1 g/dl (32.0-36.5); MEAN CORPUSCULAR VOLUME 78.1 fl (80.0-96.0); RED BLOOD COUNT 3.02 10^6/uL (4.30-6.10); WHITE BLOOD COUNT 24.6 10^3/uL (4.0-10.0)
[2024-04-09 06:08] LABS: HEMOGLOBIN 7.8 g/dl (13.5-17.5); PLATELET COUNT, AUTOMATED 446 10^3/uL (150-450)
[2024-04-09 06:32] LABS: LDH LACTATE DEHYDROGENASE 184 U/L (120-246)
[2024-04-09 06:33] LABS: IRON (FE) 304 UG/DL (65-175); PERCENT SATURATION 96.2 % (19.7-50.0); TOTAL IRON BINDING CAPACITY 316 UG/DL (250-425)
[2024-04-09 06:34] LABS: FERRITIN 7.6 NG/ML (10.5-307.3)
[2024-04-09 06:37] LABS: ALBUMIN 2.4 G/DL (3.2-5.2); ALKALINE PHOSPHATASE 63 U/L (46-116); ALT/SGPT < 9 U/L (7.0-40); AST/SGOT 14 U/L (<34); BILIRUBIN,TOTAL 0.9 MG/DL (0.3-1.2); BLOOD UREA NITROGEN 73 MG/DL (9-23); CALCIUM LEVEL 8.1 MG/DL (8.3-10.6); CARBON DIOXIDE LEVEL 23 MMOL/L (20-31); CHLORIDE LEVEL 117 MMOL/L (98-107); CREATININE FOR GFR 0.85 MG/DL (0.70-1.30); GLOMERULAR FILTRATION RATE > 60.0 (>42); GLUCOSE, FASTING 90 MG/DL (74-106); POTASSIUM SERUM 4.3 MMOL/L (3.5-5.1); SODIUM LEVEL 146 MMOL/L (136-145); TOTAL PROTEIN 5.4 G/DL (5.7-8.2)
[2024-04-09 07:51] LABS: MAGNESIUM LEVEL 1.9 MG/DL (1.8-2.4)
[2024-04-09] MEDS: ADVAIR HFA 230/21MCG INHALER INH SCH (08:00)
[2024-04-09] MEDS ORDERED: FERROUS GLUCONATE 324 MG TAB PO SCH (09:00)
[2024-04-09] MEDS: DIGOXIN 0.25 MG TAB PO SCH (09:24)
[2024-04-09] MEDS: SUCRALFATE 1 GM TAB PO SCH ×2 (09:24→12:40)
[2024-04-09] MEDS: PANTOPRAZOLE 40MG VIAL IV SCH (09:24)
[2024-04-09] MEDS: GABAPENTIN 100 MG CAP PO SCH (09:24)
[2024-04-09] MEDS: NICOTINE 14 MG/24 HR TRANSDERMAL TD SCH (11:26)
[2024-04-09 12:00] LABS: FOLATE 15.79 NG/ML (>5.4); VITAMIN B12 LEVEL 301 PG/ML (211-911)
[2024-04-09 13:02] LABS: HEMOGLOBIN 8.1 g/dl (13.5-17.5)
[2024-04-09 13:15] LABS: PROCALCITONIN 0.17 ng/ml
[2024-04-09 16:13] LABS: HEMATOCRIT 22.8 % (42.0-52.0); HEMOGLOBIN 7.5 g/dl (13.5-17.5)
[2024-04-09] MEDS: ACETAMINOPHEN TAB 650MG DOSE (2X325MG) PO PRN (19:45)
[2024-04-09 20:10] LABS: HEMATOCRIT 21.9 % (42.0-52.0); HEMOGLOBIN 7.3 g/dl (13.5-17.5)
[2024-04-10] VITALS (8 sets, daily range): BP systolic 108–140; BP diastolic 55–66; TEMP 97–98.4; O2SAT 92–98
[2024-04-10] MEDS: CIPROFLOXACIN 500MG TABLET PO SCH (05:08)
[2024-04-10 05:40] LABS: HEMATOCRIT 25.8 % (42.0-52.0); HEMOGLOBIN 8.6 g/dl (13.5-17.5); MEAN CORPUSCULAR HEMOGLOBIN 26.6 pg (27.0-33.0); MEAN CORPUSCULAR HGB CONC 33.3 g/dl (32.0-36.5); MEAN CORPUSCULAR VOLUME 79.9 fl (80.0-96.0); PLATELET COUNT, AUTOMATED 416 10^3/uL (150-450); RED BLOOD COUNT 3.23 10^6/uL (4.30-6.10); WHITE BLOOD COUNT 20.2 10^3/uL (4.0-10.0)
[2024-04-10 06:08] LABS: BLOOD UREA NITROGEN 33 MG/DL (9-23); CARBON DIOXIDE LEVEL 25 MMOL/L (20-31); CHLORIDE LEVEL 113 MMOL/L (98-107); CREATININE FOR GFR 0.63 MG/DL (0.70-1.30); GLOMERULAR FILTRATION RATE > 60.0 (>42); GLUCOSE, FASTING 85 MG/DL (74-106); POTASSIUM SERUM 4.2 MMOL/L (3.5-5.1); SODIUM LEVEL 142 MMOL/L (136-145)
[2024-04-10 12:19] LABS: HEMATOCRIT 26.1 % (42.0-52.0); HEMOGLOBIN 8.5 g/dl (13.5-17.5)
[2024-04-11 05:54] VITALS: BP 135/67; TEMP 98.8; O2SAT 92
[2024-04-11 06:47] LABS: HEMATOCRIT 26.8 % (42.0-52.0); HEMOGLOBIN 8.6 g/dl (13.5-17.5); MEAN CORPUSCULAR HEMOGLOBIN 26.2 pg (27.0-33.0); MEAN CORPUSCULAR HGB CONC 32.1 g/dl (32.0-36.5); MEAN CORPUSCULAR VOLUME 81.7 fl (80.0-96.0); PLATELET COUNT, AUTOMATED 431 10^3/uL (150-450); RED BLOOD COUNT 3.28 10^6/uL (4.30-6.10); WHITE BLOOD COUNT 18.5 10^3/uL (4.0-10.0)
[2024-04-11 07:03] LABS: BLOOD UREA NITROGEN 24 MG/DL (9-23); CALCIUM LEVEL 8.2 MG/DL (8.3-10.6); CARBON DIOXIDE LEVEL 26 MMOL/L (20-31); CHLORIDE LEVEL 111 MMOL/L (98-107); CREATININE FOR GFR 0.67 MG/DL (0.70-1.30); GLOMERULAR FILTRATION RATE > 60.0 (>42); GLUCOSE, FASTING 93 MG/DL (74-106); POTASSIUM SERUM 3.9 MMOL/L (3.5-5.1); SODIUM LEVEL 141 MMOL/L (136-145)
[2024-04-11] MEDS: CLOPIDOGREL 75 MG TAB PO SCH (10:32)
[2024-04-11] MEDS ORDERED: HEPARIN DRIP 25,000 UNITS in IV 1 EA IV SCH (11:50)
[2024-04-11] MEDS ORDERED: HEPARIN SOD (PORCINE) 5000UNITS/ML 1ML VIAL/SYRINGE IV PRN ×2 (11:50→12:30)
[2024-04-11 12:19] LABS: HEMATOCRIT 26.5 % (42.0-52.0); HEMOGLOBIN 8.7 g/dl (13.5-17.5)
[2024-04-11 14:00] VITALS: BP 136/67; TEMP 98.6; O2SAT 98
[2024-04-11] MEDS: HEPARIN DRIP 25,000 UNITS in IV 1 EA IV SCH (14:27)
== END 2024-04-11 16:00 | disposition short-term general hospital (02) | DRG 377 ==
LOC: EDBD 17:47 → M ED 17:47 → M ED INP 23:06 → M PCU 04-09 03:05 → M MS5PR 04-10 15:49
PROVIDERS: ADMIT Internal Medicine; ATTEND Student in an Organized Health Care Education/Training Program
PROC: 30233N1 Transfusion of Nonautologous Red Blood Cells into Peripheral Vein, Percutaneous Approach (ICD-10-PCS; 2024-04-08)
PROC: 0T7C8DZ Dilation of Bladder Neck with Intraluminal Device, Via Natural or Artificial Opening Endoscopic (ICD-10-PCS; principal; 2024-04-09)
PROC: 0T9B80Z Drainage of Bladder with Drainage Device, Via Natural or Artificial Opening Endoscopic (ICD-10-PCS; 2024-04-09)
DX: K92.2 Gastrointestinal hemorrhage, unspecified (principal); E43 Unspecified severe protein-calorie malnutrition; D62 Acute posthemorrhagic anemia; E87.20 Acidosis, unspecified; I70.92 Chronic total occlusion of artery of the extremities; I10 Essential (primary) hypertension; J44.9 Chronic obstructive pulmonary disease, unspecified; I48.91 Unspecified atrial fibrillation; N21.0 Calculus in bladder; F17.200 Nicotine dependence, unspecified, uncomplicated; I95.1 Orthostatic hypotension; R33.9 Retention of urine, unspecified; R63.4 Abnormal weight loss; D50.9 Iron deficiency anemia, unspecified; N32.0 Bladder-neck obstruction; H91.93 Unspecified hearing loss, bilateral; R19.7 Diarrhea, unspecified; R59.0 Localized enlarged lymph nodes; R11.10 Vomiting, unspecified; I70.235 Atherosclerosis of native arteries of right leg with ulceration of other part of foot; I70.245 Atherosclerosis of native arteries of left leg with ulceration of other part of foot; L97.519 Non-pressure chronic ulcer of other part of right foot with unspecified severity; L97.529 Non-pressure chronic ulcer of other part of left foot with unspecified severity; Z79.82 Long term (current) use of aspirin; Z79.02 Long term (current) use of antithrombotics/antiplatelets; Z79.899 Other long term (current) drug therapy; Z88.6 Allergy status to analgesic agent; Z88.8 Allergy status to other drugs, medicaments and biological substances; Z95.820 Peripheral vascular angioplasty status with implants and grafts

== ENCOUNTER → 2024-06-08 | Outpatient (CLI) | payer MEDICARE, MEDICAID ==
[~2024-06-08] MED LIST changes: +ASPI-226 PO; +BACT800T5 PO; +CLOP75TA2 PO; +COLA100C5 PO; +FERR325T19 PO; +GABA-1171 PO; +HYDR-3363 PO; +IPRA0.00 INH; +LISI10TA22 PO; +PANT20TA6 PO; +PERCOCET PO; +SUCR1TAB56 PO
[2024-06-08 13:35] LABS: HEMATOCRIT 29.6 % (42.0-52.0); MEAN CORPUSCULAR HEMOGLOBIN 23.9 pg (27.0-33.0); MEAN CORPUSCULAR HGB CONC 30.4 g/dl (32.0-36.5); MEAN CORPUSCULAR VOLUME 78.5 fl (80.0-96.0); RED BLOOD COUNT 3.77 10^6/uL (4.30-6.10); WHITE BLOOD COUNT 16.9 10^3/uL (4.0-10.0)
[2024-06-08 13:36] LABS: PLATELET COUNT, AUTOMATED 508 10^3/uL (150-450)
[2024-06-08 14:06] LABS: BLOOD UREA NITROGEN 29 MG/DL (9-23); CALCIUM LEVEL 8.9 MG/DL (8.3-10.6); CARBON DIOXIDE LEVEL 26 MMOL/L (20-31); CHLORIDE LEVEL 111 MMOL/L (98-107); CREATININE FOR GFR 0.83 MG/DL (0.70-1.30); GLOMERULAR FILTRATION RATE > 60.0 (>42); GLUCOSE, FASTING 94 MG/DL (74-106); POTASSIUM SERUM 4.7 MMOL/L (3.5-5.1); SODIUM LEVEL 142 MMOL/L (136-145)
[2024-06-08 14:21] LABS: INR 1.02; PARTIAL THROMBOPLASTIN TIME 30.6 SECONDS (24.8-34.2); PROTHROMBIN TIME 13.1 SECONDS (12.5-14.5)
== END ==
LOC: M RAD 12:33
PROVIDERS: ATTEND Urology
DX: Z01.818 Encounter for other preprocedural examination (principal); N21.0 Calculus in bladder; N32.0 Bladder-neck obstruction; N39.0 Urinary tract infection, site not specified

== ENCOUNTER 2024-06-10 05:59 | Inpatient (IN) | payer MEDICARE, MEDICAID ==
[~2024-06-10] VITALS: Ht 167.6 cm; Wt 53.5 kg
[~2024-06-10 05:59] MED LIST changes: -BACT800T5 PO; -COLA100C5 PO; -PERCOCET PO
[2024-06-10] MEDS ORDERED: LIDOCAINE 1% SDV 5ML VIAL SC PRN (06:25)
[2024-06-10] MEDS ORDERED: ACETAMINOPHEN 1000MG 100ML IV BAG As Ordered ONE (06:45)
[2024-06-10] MEDS ORDERED: ONDANSETRON 4MG 2ML VIAL As Ordered ONE (06:46)
[2024-06-10] MEDS ORDERED: propofoL 200 MG/20 ML VIAL As Ordered ONE (06:46)
[2024-06-10] MEDS ORDERED: KETOROLAC 60MG 2ML VIAL As Ordered ONE (06:46)
[2024-06-10] MEDS ORDERED: LIDOCAINE 2% 100MG/5ML SDV (FOR ANES.) As Ordered ONE (06:46)
[2024-06-10] MEDS ORDERED: ROCURONIUM BROMIDE 50MG/5ML VIAL As Ordered ONE (06:46)
[2024-06-10] MEDS ORDERED: SUGAMMADEX SODIUM 500 MG/5 ML VIAL (BRIDION) As Ordered ONE (06:46)
[2024-06-10] MEDS ORDERED: fentaNYL 100 MCG/2 ML INJECTION As Ordered ONE (06:53)
[2024-06-10] MEDS ORDERED: MIDAZOLAM INJ 2MG/2ML VIAL As Ordered ONE (06:53)
[2024-06-10] MEDS: LR 1,000 ML IV SCH ×2 (06:54→16:23)
[2024-06-10] MEDS: ceFAZolin SOD 2 GM in IV 1 EA IV ONE (07:50)
[2024-06-10] MEDS ORDERED: ALBUTEROL 6.7GM INHALER **FOR ANES. CART/OMNICELL ONLY As Ordered ONE (08:10)
[2024-06-10] MEDS ORDERED: BREO ELLIPTA INH SCH (09:00)
[2024-06-10] MEDS: metroNIDAZOLE/NACL 500MG(5MG/ML) 100ML BAG As Ordered ONE (09:02)
[2024-06-10] MEDS ORDERED: HYDROmorphone HCL 2MG/ML 1ML VIAL As Ordered ONE (09:09)
[2024-06-10] MEDS ORDERED: PHENYLephrine 500MCG 5ML (100MCG/ML) SYRINGE As Ordered ONE (09:40)
[2024-06-10] MEDS ORDERED: fentaNYL 100 MCG/2 ML INJECTION IV PRN (10:20)
[2024-06-10] MEDS ORDERED: ONDANSETRON 4MG 2ML VIAL IV PRN ×2 (10:20→10:50)
[2024-06-10] MEDS ORDERED: oxyCODONE 5MG TAB PO PRN (10:20)
[2024-06-10] MEDS: LIDOCAINE 1% SDV 30ML VIAL As Ordered ONE (10:22)
[2024-06-10] MEDS ORDERED: ACETAMINOPHEN TAB 650MG DOSE (2X325MG) PO PRN (10:50)
[2024-06-10 13:58] LABS: BASO # 0.1 10^3/uL (0.0-0.2); BASO % 0.5 % (0.0-1.0); HEMATOCRIT 33.8 % (42.0-52.0); HEMOGLOBIN 10.2 g/dl (13.5-17.5); LYMPH # 3.8 10^3/uL (1.5-5.0); MEAN CORPUSCULAR HEMOGLOBIN 23.9 pg (27.0-33.0); MEAN CORPUSCULAR HGB CONC 30.2 g/dl (32.0-36.5); MEAN CORPUSCULAR VOLUME 79.2 fl (80.0-96.0); MONO # 0.8 10^3/uL (0.0-0.8); MONO % 3.7 % (2.0-8.0); NEUTROPHILS # 16.3 10^3/uL (1.5-8.5); NEUTROPHILS % 77.3 % (36.0-66.0); PLATELET COUNT, AUTOMATED 513 10^3/uL (150-450); RED BLOOD COUNT 4.27 10^6/uL (4.30-6.10); WHITE BLOOD COUNT 21.1 10^3/uL (4.0-10.0)
[2024-06-10] MEDS: IPRATROPIUM 0.5MG/ALBUTEROL 2.5MG INH SOL UD 3ML (DUONEB) NEB SCH (13:58)
[2024-06-10 14:23] LABS: ALBUMIN 2.8 G/DL (3.2-5.2); ALKALINE PHOSPHATASE 86 U/L (46-116); ALT/SGPT 9 U/L (7.0-40); AST/SGOT 10 U/L (<34); BILIRUBIN,TOTAL < 0.2 MG/DL (0.3-1.2); BLOOD UREA NITROGEN 22 MG/DL (9-23); CALCIUM LEVEL 8.4 MG/DL (8.3-10.6); CARBON DIOXIDE LEVEL 25 MMOL/L (20-31); CHLORIDE LEVEL 110 MMOL/L (98-107); CREATININE FOR GFR 0.81 MG/DL (0.70-1.30); GLOMERULAR FILTRATION RATE > 60.0 (>42); GLUCOSE, FASTING 133 MG/DL (74-106); MAGNESIUM LEVEL 1.8 MG/DL (1.8-2.4); POTASSIUM SERUM 4.7 MMOL/L (3.5-5.1); SODIUM LEVEL 137 MMOL/L (136-145); TOTAL PROTEIN 6.6 G/DL (5.7-8.2)
[2024-06-10 14:29] LABS: PROCALCITONIN 0.06 ng/ml
[2024-06-10 14:38] LABS: ERYTHROCYTE SEDIMENTATION RATE 74 mm/hr (0-20)
[2024-06-10 15:40] VITALS: BP 151/69; TEMP 97.7; O2SAT 93
[2024-06-10 16:10] VITALS: BP 134/62; TEMP 97.8; O2SAT 93
[2024-06-10] MEDS: ceFAZolin SOD 1 GM in D5W MINI-BAG PLUS 50 ML IV SCH (16:22)
[2024-06-10] MEDS: amLODIPine 5 MG TAB PO SCH (16:22)
[2024-06-10] MEDS: DIGOXIN 0.25 MG TAB PO SCH (16:22)
[2024-06-10] MEDS: metroNIDAZOLE 500 MG in IV 1 EA IV SCH (17:03)
[2024-06-10 17:12] VITALS: BP 145/70; TEMP 98; O2SAT 93
[2024-06-10 18:12] VITALS: BP 118/56; TEMP 97.4; O2SAT 93
[2024-06-10 19:43] VITALS: BP 116/58; TEMP 97.5; O2SAT 94
[2024-06-10] MEDS: DOCUSATE SODIUM 100MG CAPSULE PO SCH (21:14)
[2024-06-10] MEDS: SUCRALFATE 1 GM TAB PO SCH (21:14)
[2024-06-10] MEDS ORDERED: BACT800T5 PO (23:34)
[2024-06-10] MEDS ORDERED: HOME MED LIST COMPLETE! XX SCH (23:35)
[2024-06-10 23:45] VITALS: BP 120/58; TEMP 97.7; O2SAT 95
[2024-06-11 03:35] VITALS: BP 118/57; TEMP 97.7; O2SAT 94
[2024-06-11 06:24] LABS: HEMATOCRIT 28.4 % (42.0-52.0); HEMOGLOBIN 8.6 g/dl (13.5-17.5); MEAN CORPUSCULAR HEMOGLOBIN 23.4 pg (27.0-33.0); MEAN CORPUSCULAR HGB CONC 30.3 g/dl (32.0-36.5); MEAN CORPUSCULAR VOLUME 77.4 fl (80.0-96.0); PLATELET COUNT, AUTOMATED 504 10^3/uL (150-450); RED BLOOD COUNT 3.67 10^6/uL (4.30-6.10); WHITE BLOOD COUNT 21.4 10^3/uL (4.0-10.0)
[2024-06-11 06:51] LABS: BLOOD UREA NITROGEN 20 MG/DL (9-23); CALCIUM LEVEL 8.5 MG/DL (8.3-10.6); CARBON DIOXIDE LEVEL 27 MMOL/L (20-31); CHLORIDE LEVEL 108 MMOL/L (98-107); CREATININE FOR GFR 0.77 MG/DL (0.70-1.30); GLOMERULAR FILTRATION RATE > 60.0 (>42); GLUCOSE, FASTING 82 MG/DL (74-106); POTASSIUM SERUM 4.6 MMOL/L (3.5-5.1); SODIUM LEVEL 137 MMOL/L (136-145)
[2024-06-11 07:47] VITALS: BP 124/58; TEMP 97.7; O2SAT 97
[2024-06-11] MEDS ORDERED: PIPERACILLIN/TAZOBACTAM SOD 4.5 GM in D5W MINI-BAG PLUS 50 ML IV SCH (08:10)
[2024-06-11] MEDS: PANTOPRAZOLE 20 MG TAB PO SCH (09:14)
[2024-06-11] MEDS: FERROUS SULFATE 325MG TAB PO SCH (09:14)
[2024-06-11] MEDS: GABAPENTIN 100 MG CAP PO SCH (09:14)
[2024-06-11] MEDS: PIPERACILLIN/TAZOBACTAM SOD 3.375 GM in D5W MINI-BAG PLUS 50 ML IV SCH (09:14)
[2024-06-11] MEDS: PERCOCET 5MG/325MG TAB PO PRN (09:16)
[2024-06-11] MEDS: ADVAIR HFA 115/21MCG INHALER INH SCH (09:44)
[2024-06-11] MEDS ORDERED: PERCOCET PO (13:00)
[2024-06-11] MEDS ORDERED: COLA100C5 PO (13:00)
[2024-06-11 15:51] VITALS: BP 115/56; TEMP 97.5; O2SAT 96
[2024-06-11 20:02] VITALS: BP 125/60; TEMP 97.9; O2SAT 96
[2024-06-12 03:34] VITALS: BP 133/57; TEMP 98.9; O2SAT 91
[2024-06-12 06:34] LABS: HEMATOCRIT 28.9 % (42.0-52.0); HEMOGLOBIN 8.9 g/dl (13.5-17.5); MEAN CORPUSCULAR HEMOGLOBIN 23.5 pg (27.0-33.0); MEAN CORPUSCULAR HGB CONC 30.8 g/dl (32.0-36.5); MEAN CORPUSCULAR VOLUME 76.5 fl (80.0-96.0); PLATELET COUNT, AUTOMATED 541 10^3/uL (150-450); RED BLOOD COUNT 3.78 10^6/uL (4.30-6.10)
[2024-06-12 06:55] LABS: BLOOD UREA NITROGEN 20 MG/DL (9-23); CALCIUM LEVEL 8.6 MG/DL (8.3-10.6); CARBON DIOXIDE LEVEL 27 MMOL/L (20-31); CHLORIDE LEVEL 106 MMOL/L (98-107); GLOMERULAR FILTRATION RATE > 60.0 (>42); GLUCOSE, FASTING 94 MG/DL (74-106); POTASSIUM SERUM 4.3 MMOL/L (3.5-5.1); SODIUM LEVEL 137 MMOL/L (136-145)
[2024-06-12 08:25] VITALS: BP 114/55; TEMP 97.8; O2SAT 98
[2024-06-12 09:02] LABS: ERYTHROCYTE SEDIMENTATION RATE 84 mm/hr (0-20)
[2024-06-12] MEDS: DOXYCYCLINE HYCLATE 100MG TABLET PO SCH (10:12)
[2024-06-12 10:15] VITALS: BP 104/57
[2024-06-12] MEDS ORDERED: SELF1KIT MC (12:27)
== END 2024-06-12 14:09 | disposition home or self-care (01) | DRG 902 ==
LOC: M SDC 05:59 → M ED INP 12:27 → M PCU 15:40
PROVIDERS: ADMIT General Practice; ATTEND General Practice
PROC: 0DQ80ZZ Repair Small Intestine, Open Approach (ICD-10-PCS; 2024-06-10)
PROC: 0TCB0ZZ Extirpation of Matter from Bladder, Open Approach (ICD-10-PCS; 2024-06-10 07:30)
PROC: 0JBP3ZZ Excision of Left Lower Leg Subcutaneous Tissue and Fascia, Percutaneous Approach (ICD-10-PCS; principal; 2024-06-11)
PROC: 0JBN0ZZ Excision of Right Lower Leg Subcutaneous Tissue and Fascia, Open Approach (ICD-10-PCS; 2024-06-11)
DX: K91.72 Accidental puncture and laceration of a digestive system organ or structure during other procedure (principal); L97.328 Non-pressure chronic ulcer of left ankle with other specified severity; L97.318 Non-pressure chronic ulcer of right ankle with other specified severity; N21.0 Calculus in bladder; I10 Essential (primary) hypertension; J44.9 Chronic obstructive pulmonary disease, unspecified; I48.91 Unspecified atrial fibrillation; N40.1 Benign prostatic hyperplasia with lower urinary tract symptoms; L84 Corns and callosities; R33.9 Retention of urine, unspecified; H91.93 Unspecified hearing loss, bilateral; I70.233 Atherosclerosis of native arteries of right leg with ulceration of ankle; I70.243 Atherosclerosis of native arteries of left leg with ulceration of ankle; Z79.899 Other long term (current) drug therapy; Z95.820 Peripheral vascular angioplasty status with implants and grafts; Z88.6 Allergy status to analgesic agent; Z88.8 Allergy status to other drugs, medicaments and biological substances

== ENCOUNTER 2024-06-12 14:22 | Outpatient (CLI) | payer MEDICARE, MEDICAID ==
[~2024-06-12] VITALS: Ht 180.3 cm; Wt 53.6 kg
[~2024-06-12 14:22] MED LIST changes: +BACT800T5 PO; +COLA100C5 PO; +PERCOCET PO; +SELF1KIT MC
[2024-06-12 14:45] VITALS: BP 124/60; O2SAT 96
[2024-06-12] MEDS: DALBAVANCIN 1,500 MG in D5W 250 ML IV ONE (15:01)
[2024-06-12 16:20] VITALS: BP 129/60; O2SAT 99
== END 2024-06-12 16:20 ==
LOC: M INFU 14:22
PROVIDERS: ATTEND General Practice
DX: L97.929 Non-pressure chronic ulcer of unspecified part of left lower leg with unspecified severity (principal); B95.62 Methicillin resistant Staphylococcus aureus infection as the cause of diseases classified elsewhere; Z88.8 Allergy status to other drugs, medicaments and biological substances
CPT/HCPCS: 96365; J0875

== ENCOUNTER → 2024-09-21 | Outpatient (REF) | payer MEDICARE, MEDICAID ==
[~2024-09-21] MED LIST changes: +ALBU8.5H INH; +NORV5TAB PO
[2024-09-21 18:59] LABS: APPEARANCE, URINE MANUAL TURBID (CLEAR); COLOR, URINE MANUAL PINK (YELLOW)
[2024-09-21 19:00] LABS: BILIRUBIN, URINE MANUAL NEGATIVE (NEGATIVE); BLOOD URINE MANUAL POSITIVE (NEGATIVE); GLUCOSE, URINE (UA) MANUAL NEGATIVE (NEGATIVE); KETONE, URINE MANUAL 1+ mg/dL (NEGATIVE); LEUKOCYTE ESTERASE, URINE MAN POSITIVE (NEGATIVE); NITRITE, URINE MANUAL NEGATIVE (NEGATIVE); PROTEIN, URINE MANUAL 2+ mg/dL (NEGATIVE); UROBILINOGEN, URINE MANUAL NORMAL (NORMAL)
[2024-09-21 19:06] LABS: BACTERIA, URINE SMALL AMOUNT; HYALINE CAST, URINE NONE SEEN /lpf (0-1); RBC, URINE 20-30 /hpf (0-3); SQUAMOUS EPITHELIAL CELL URINE NONE SEEN /hpf (SMALL AMT); WBC, URINE TNTC /hpf (0-3)
== END ==
LOC: M SMT 17:37
PROVIDERS: ATTEND Urology
DX: R33.9 Retention of urine, unspecified (principal)